=== PATIENT | female | born 1990 | race Caucasian/White ===

== ENCOUNTER 2016-05-04 10:05 | Emergency (ER) | payer MEDICAID, OTHER ==
[2016-05-04] MEDS ORDERED: ONDANSETRON 4MG/2ML VIAL (J2405) As Ordered ONE (10:57)
[2016-05-04] MEDS ORDERED: KETOROLAC 30 MG/ML VIAL (J1885) As Ordered ONE (10:57)
[2016-05-04 11:14] LABS: BASO % 0.4 % (0.0-1.0); EOS # 0.3 K/mm3 (0.0-0.50); EOS % 2.7 % (0.0-3.0); LARGE UNSTAINED CELL # 0.1 K/mm3 (0.0-0.4); LARGE UNSTAINED CELL % 0.9 % (0.0-4.0); LYMPH % 9.7 % (24.0-44.0); MEAN CORPUSCULAR HGB CONC 33.1 g/dl (32.0-36.5); MEAN CORPUSCULAR VOLUME 87.6 fl (80.0-96.0); MONO # 0.4 K/mm3 (0.0-0.8); MONO % 3.7 % (0.0-5.0); NEUTROPHILS # 8.5 K/mm3 (1.8-7.7); NEUTROPHILS % 82.6 % (36.0-66.0); PLATELET COUNT, AUTOMATED 244 k/mm3 (150-450); RED CELL DISTRIBUTION WIDTH 12.9 % (11.5-14.5); WHITE BLOOD COUNT 10.3 K/mm3 (4.0-10.0)
[2016-05-04 11:36] LABS: ALBUMIN 4.5 GM/DL (3.2-5.2); ALBUMIN/GLOBULIN RATIO 1.29 (1.00-1.93); ALKALINE PHOSPHATASE 74 U/L (45-117); ALT/SGPT 20 U/L (12-78); ANION GAP 7 MEQ/L (8-16); AST/SGOT 9 U/L (15-37); BILIRUBIN,DIRECT 0.1 MG/DL (0.0-0.2); BILIRUBIN,TOTAL 0.5 MG/DL (0.2-1.0); BLOOD UREA NITROGEN 19 MG/DL (7-18); CARBON DIOXIDE LEVEL 29 MEQ/L (21-32); CHLORIDE LEVEL 106 MEQ/L (98-107); CREATININE FOR GFR 0.91 MG/DL (0.55-1.02); GLOMERULAR FILTRATION RATE > 60.0 (>60); GLUCOSE, FASTING 93 MG/DL (70-105); POTASSIUM SERUM 3.7 MEQ/L (3.5-5.1); SODIUM LEVEL 142 MEQ/L (136-145)
[2016-05-04 11:52] LABS: CALCIUM OXALATE CRYSTALS SMALL
[2016-05-04] MEDS ORDERED: MORPHINE 4 MG/ML 1ML SYRINGE As Ordered ONE (12:03)
--- NOTE | 2016-05-04 12:40 | REP ---
Clinical: Right flank pain. Findings: Lung bases clear. Visualized heart and pericardium normal. Liver, spleen, pancreas, gallbladder, bilateral adrenal glands and kidneys are normal for noncontrast evaluation. The enteric system is without obstruction or acute inflammatory process. Mildly prominent lymph nodes in the right lower quadrant/pericecal region may reflect mesenteric adenitis. Pelvis demonstrates normal bladder and age-appropriate uterus/adnexa. No pelvic fluid/ascites. No free air. Abdominal aorta normal. Surrounding musculoskeletal structures are intact. Impression: 1. Cannot exclude mesenteric adenitis. 2. Otherwise unremarkable noncontrast CT of the abdomen and pelvis. No evidence for hydroureteronephrosis or intra renal/obstructing ureteral calculi. 3. No ascites. Signed by Pasquale Baez MD 05/04/2016 12:30 P
--- NOTE | 2016-05-04 12:57 | EDDOCDS ---
Physician Documentation [facility] Name: Lesia Jo Age: 26 yrs Sex: Female : 1990 Arrival Date: 05/04/2016 Time: 10:05 Bed I2 / M2 Private MD: Disposition: 05/04/16 12:49 Discharged to Home/Self Care. Impression: Unspecified renal colic. - Condition is Stable. - Discharge Instructions: Ureteral Colic. - Prescriptions for Ultram 50 mg Oral Tablet - take 1 tablet by ORAL route every 6 hours As needed MDD: 4 tabs; 12 tablet. - Medication Reconciliation, Local Pharmacy Hours form. - Follow up: Emergency Department; When: As needed; Reason: Worsening of conditions. Follow up: Private Physician; When: Call to arrange an appointment; Reason: Wound/Symptom Recheck, Recheck today's complaints, Continuance of care. - Problem is an ongoing problem. - Symptoms are resolved. Historical: - Allergies: no known allergies; - Home Meds: 1. Effexor XR 225mg Oral 1 cap once daily (Last dose: 05/03/2016 07:00) 2. levothyroxine 88 mcg Oral cap 1 cap once daily (Last dose: 05/04/2016 07:00) 3. Motrin 200mg Oral tab 4 tab as needed (Last dose: 05/04/2016 08:00) - PMHx: PTSD; Thyroid problem; - PSHx: chest tube after ; Right breast reconstruction; - Social history: Smoking status: Patient uses tobacco products, light tobacco smoker. No barriers to communication noted, The patient speaks fluent Turkish. - Family history: Not pertinent. - : The pt / caregiver states he / she is not on anticoagulants. Home medication list is obtained from the patient. - Exposure Risk Screening:: None identified. 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 4 in. (162.56 cm); Pain 9/10; 11:42 Pain 4/10; jc4 12:49 BP 111 / 78; Pulse 87; Resp 20; Temp 98.2(O); Pulse Ox 100% ; Pain 0/10; jml1 10:07 Body Mass Index 24.55 (64.86 kg, 162.56 cm) sar1 MDM: 10:53 NS 0.9% 1000 ml IV at bolus once ordered. cc10 10:53 Ondansetron 4 mg IVP once ordered. cc10 10:53 ketorolac 30 mg IVP once ordered. cc10 10:53 IV Saline Lock ordered. cc10 10:53 Undress patient appropriately for examination ordered. cc10 10:54 Basic Metabolic Profile Ordered. EDMS 10:54 CBC with Diff Ordered. EDMS 10:54 Lipase Ordered. EDMS 10:54 Liver Profile Ordered. EDMS 10:54 Urinalysis Ordered. EDMS 10:54 Urine Culture Ordered. EDMS 10:54 UCG by Nursing ordered. cc10 10:54 NOTHING BY MOUTH+DIET ordered. EDMS 11:07 [facility] Payment Agreement was scanned into [employer] and attached to record. jp5 11:08 Financial registration complete. jp5 11:54 Basic Metabolic Profile Reviewed. cc10 11:54 CBC with Diff Reviewed. cc10 11:54 Liver Profile Reviewed. cc10 11:54 Urinalysis Reviewed. cc10 11:54 Lipase Reviewed. cc10 11:58 morphine 4 mg IVP once ordered. cc10 11:59 CT ABD & PELVIS: No Contrast Ordered. EDMS Point of Care Testing: Urine : 11:42 hCG Reading: Negative; Control Reading: Positive; jc4 Ranges: Administered Medications: 11:04 Drug: NS 0.9% 1000 ml [sodium chloride 0.9 % intravenous solution] Route: IV; Rate: hs1 bolus; Site: right antecubital; 12:56 Follow up: IV Status: Completed infusion; IV Intake: 1000ml hs1 11:04 Drug: Ondansetron 4 mg [ondansetron HCl 2 mg/mL intravenous solution (2 mL)] Route: hs1 IVP; Site: right antecubital; 11:05 Drug: ketorolac 30 mg [ketorolac 30 mg/mL (1 mL) injection solution (1 mL)] Route: IVP; hs1 Site: right antecubital; 11:42 Follow up: Pain 4/10 Adult 4 12:06 Drug: morphine 4 mg [morphine 4 mg/mL intravenous cartridge (1 mL)] Route: IVP; Site: [facility] right antecubital; 12:06 Follow up: Response: Confirmed pt not driving. jc4 Signatures: Dispatcher [employer] Manuel Ma,RN RN Gianna Harper RN RN hs1 Rimma Kelley RN RN jc4 Oscar Marin, PAShonaC PA-C cc10 Danie Harrison jp5 The chart was reviewed and I authenticate all verbal orders and agree with the evaluation and treatment provided.Attachments: 11:07 [facility] Payment Agreement jp5 MTDD
--- NOTE | 2016-05-04 12:57 | EDDOCDS ---
Nurse's Notes [facility] Name: Lesia Jo Age: 26 yrs Sex: Female : 1990 Arrival Date: 05/04/2016 Time: 10:05 Bed I2 / M2 Private MD: Diagnosis: Unspecified renal colic Presentation: 05/04 10:11 Presenting complaint: Patient states: Thursday had pain in RLQ with N/V that resolved. po Awoke with right flank pain this am. Acute neurological deficits are not present. Mechanism of Injury: No Mechanism of Injury. Adult Sepsis Screening: The patient does not have new or worsening altered mentation. Patient's respiratory rate is less than 22. Systolic blood pressure is greater than 100. Patient has a qSOFA score of 0- Negative Sepsis Screen. Suicide/Homicide risk assessment- the patient denies having any suicidal and/or homicidal ideations and does not present with any other emotional, behavioral or mental health complaints. 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 Transition of care: patient was not received from another setting of care. 10:11 Acuity: VITA Level 3 po 10:11 Method Of Arrival: Walkin/Carried/Asstd po Triage Assessment: 10:16 General: Appears in no apparent distress, Behavior is appropriate for age, cooperative. po Pain: Location: right flank Pain currently is 9 out of 10 on a pain scale. Quality of pain is described as aching, dull, Is intermittent. HIV screening NA for this visit Offered previously. Neurological: Level of Consciousness is awake, alert, Oriented to person, place, time. GI: Reports nausea. : Denies burning with urination, urinary frequency, urgency. Musculoskeletal: Denies weakness, numbness. 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 Effexor XR 225mg Oral 1 cap once daily (Last dose: 05/03/2016 07:00) 2. levothyroxine 88 mcg Oral cap 1 cap once daily (Last dose: 05/04/2016 07:00) 3. Motrin 200mg Oral tab 4 tab as needed (Last dose: 05/04/2016 08:00) - PMHx: PTSD; Thyroid problem; - PSHx: chest tube after ; Right breast reconstruction; - Social history: Smoking status: Patient uses tobacco products, light tobacco smoker. No barriers to communication noted, The patient speaks fluent Malian. - Family history: Not pertinent. - : The pt / caregiver states he / she is not on anticoagulants. Home medication list is obtained from the patient. - Exposure Risk Screening:: None identified. Screenin:09 Screening information is obtained from the patient. Fall risk: No risks identified. jc4 Assistance ADL's: requires no assistance with activities of daily living. Abuse/DV Screen: The patient / caregiver reports he/she is: not in a situation that causes fear, pain or injury. Nutritional screening: No deficits noted. Advance Directives: Currently, there is no health care proxy. There is no active DNR order. There is no living will. There is no Power of Motor Setter. home support is adequate. Assessment: 11:08 General: Appears in no apparent distress, Behavior is cooperative, pleasant. Pain: Pain jc4 currently is 7 out of 10 on a pain scale. Neurological: Level of Consciousness is awake, alert, Oriented to person, place, time. Respiratory: Airway is patent Respiratory effort is even, unlabored, Respiratory pattern is regular, symmetrical. : Reports pain in right flank(s). Derm: Skin is pink, warm & dry. 11:44 General: Pt resting on stretcher. No distress noted at this time. Pt reports that pain jc4 is currently "4/10" at this time. Color pink, skin warm and dry. Respirations easy and full. Significant other at bedside. Call cartagena in reach. 12:54 General: Appears in no apparent distress, comfortable, Behavior is appropriate for age, hs1 cooperative. Pain: Denies pain. Cardiovascular: No deficits noted. Respiratory: Airway is patent Respiratory effort is even, unlabored, Respiratory pattern is regular, symmetrical. GI: Denies nausea. : Denies. Derm: Skin is pink, warm & dry. normal. Vital Signs: 10:07 BP 151 / 98; Pulse 88; Resp 18; Temp 98.1; Pulse Ox 100% ; Weight 64.86 kg; Height 5 sar1 ft. 4 in. (162.56 cm); Pain 9/10; 11:42 Pain 4/10; jc4 12:49 BP 111 / 78; Pulse 87; Resp 20; Temp 98.2(O); Pulse Ox 100% ; Pain 0/10; jml1 10:07 Body Mass Index 24.55 (64.86 kg, 162.56 cm) [facility] Vitals: 10:07 Log In Time: May 04, 2016 at 10:07. [facility] ED Course: 10:06 Patient visited by Padmini Stack, Aviation Consultant. sar1 10:06 Patient moved to Waiting sar1 10:08 Patient moved to Pre RCE sar1 10:13 Triage Initiated po 10:16 Arm band placed on right wrist. Patient placed in waiting room. Family accompanied po patient. 10:18 Patient visited by Manuel Lake RN. po 10:32 Patient moved to Triage 3 mlb1 10:42 Oscar Marin PA-C is PHCP. cc10 10:42 Kat Cartagena MD is Attending Physician. cc10 10:42 Patient visited by Oscar Marin PA-C. cc10 10:42 Patient visited by Oscar Marin PA-C. cc10 10:54 Rimma Kelley, ALEX is Primary Nurse. rn1 10:54 Patient moved to I2 / M2 rn1 11:01 Inserted saline lock: 20 gauge in right antecubital area The patient tolerated the jc4 procedure well. 11:04 Basic Metabolic Profile Sent. hs1 11:04 CBC with Diff Sent. hs1 11:04 Lipase Sent. hs1 11:04 Liver Profile Sent. hs1 11:07 [facility] Payment Agreement was scanned into [email or web address] and attached to record. jp5 11:08 The patient / caregiver is instructed regarding the plan of care and ED course. jc4 11:13 Patient visited by Gianna Medina RN. hs1 11:42 Urinalysis Sent. jc4 11:42 Urine Culture Sent. jc4 11:44 Patient visited by Rimma Kelley RN. jc4 12:43 CT ABD & PELVIS: No Contrast Returned. EDMS 12:45 Patient visited by Gianna Medina RN. hs1 12:49 Patient visited by Corey Jordan. jml1 12:55 Discontinued IV lock intact, bleeding controlled, pressure dressing applied, No hs1 redness/swelling at site. No procedures done that require assistance. Administered Medications: 11:04 Drug: NS 0.9% 1000 ml [sodium chloride 0.9 % intravenous solution] Route: IV; Rate: hs1 bolus; Site: right antecubital; 12:56 Follow up: IV Status: Completed infusion; IV Intake: 1000ml hs1 11:04 Drug: Ondansetron 4 mg [ondansetron HCl 2 mg/mL intravenous solution (2 mL)] Route: hs1 IVP; Site: right antecubital; 11:05 Drug: ketorolac 30 mg [ketorolac 30 mg/mL (1 mL) injection solution (1 mL)] Route: IVP; hs1 Site: right antecubital; 11:42 Follow up: Pain 4/10 Adult jc4 12:06 Drug: morphine 4 mg [morphine 4 mg/mL intravenous cartridge (1 mL)] Route: IVP; Site: jc4 right antecubital; 12:06 Follow up: Response: Confirmed pt not driving. jc4 Point of Care Testing: Urine : 11:42 hCG Reading: Negative; Control Reading: Positive; jc4 Ranges: Intake: 12:56 IV: 1000.00ml; Total: 1000.00ml. hs1 Order Results: Lab Order: Basic Metabolic Profile; SPEC'M 05/04/16 11:02 Test: GLUCOSE, FASTING; Value: 93; Range: 70-105; Units: MG/DL; Status: F Test: BLOOD UREA NITROGEN; Value: 19; Range: 7-18; Abnormal: Above high normal; Units: MG/DL; Status: F Test: CREATININE FOR GFR; Value: 0.91; Range: 0.55-1.02; Units: MG/DL; Status: F Test: GLOMERULAR FILTRATION RATE; Value: > 60.0; Range: >60; Status: F Test: SODIUM LEVEL; Value: 142; Range: 136-145; Units: MEQ/L; Status: F Test: POTASSIUM SERUM; Value: 3.7; Range: 3.5-5.1; Units: MEQ/L; Status: F Test: CHLORIDE LEVEL; Value: 106; Range: 98-107; Units: MEQ/L; Status: F Test: CARBON DIOXIDE LEVEL; Value: 29; Range: 21-32; Units: MEQ/L; Status: F Test: ANION GAP; Value: 7; Range: 8-16; Abnormal: Below low normal; Units: MEQ/L; Status: F Test: CALCIUM LEVEL; Value: 9.0; Range: 8.5-10.1; Units: MG/DL; Status: F Test Note: ; Units are mL/min/1.73 m2 Chronic Kidney Disease Staging per NKF: Stage I & II GFR >=60 Normal to Mildly Decreased Stage III GFR 30-59 Moderately Decreased Stage IV GFR 15-29 Severely Decreased Stage V GFR <15 Very Little GFR Left ESRD GFR <15 on BROACH GRINDER Lab Order: CBC with Diff; SPEC'M 05/04/16 11:02 Test: WHITE BLOOD COUNT; Value: 10.3; Range: 4.0-10.0; Abnormal: Above high normal; Units: K/mm3; Status: F Test: RED BLOOD COUNT; Value: 4.60; Range: 4.00-5.40; Units: M/mm3; Status: F Test: HEMOGLOBIN; Value: 13.3; Range: 12.0-16.0; Units: g/dl; Status: F Test: HEMATOCRIT; Value: 40.3; Range: 36.0-47.0; Units: %; Status: F Test: MEAN CORPUSCULAR VOLUME; Value: 87.6; Range: 80.0-96.0; Units: fl; Status: F Test: MEAN CORPUSCULAR HEMOGLOBIN; Value: 29.0; Range: 27.0-33.0; Units: pg; Status: F Test: MEAN CORPUSCULAR HGB CONC; Value: 33.1; Range: 32.0-36.5; Units: g/dl; Status: F Test: RED CELL DISTRIBUTION WIDTH; Value: 12.9; Range: 11.5-14.5; Units: %; Status: F Test: PLATELET COUNT, AUTOMATED; Value: 244; Range: 150-450; Units: k/mm3; Status: F Test: NEUTROPHILS %; Value: 82.6; Range: 36.0-66.0; Abnormal: Above high normal; Units: %; Status: F Test: LYMPH %; Value: 9.7; Range: 24.0-44.0; Abnormal: Below low normal; Units: %; Status: F Test: MONO %; Value: 3.7; Range: 0.0-5.0; Units: %; Status: F Test: EOS %; Value: 2.7; Range: 0.0-3.0; Units: %; Status: F Test: BASO %; Value: 0.4; Range: 0.0-1.0; Units: %; Status: F Test: LARGE UNSTAINED CELL %; Value: 0.9; Range: 0.0-4.0; Units: %; Status: F Test: NEUTROPHILS #; Value: 8.5; Range: 1.8-7.7; Abnormal: Above high normal; Units: K/mm3; Status: F Test: LYMPH #; Value: 1.0; Range: 1.5-6.5; Abnormal: Below low normal; Units: K/mm3; Status: F Test: MONO #; Value: 0.4; Range: 0.0-0.8; Units: K/mm3; Status: F Test: EOS #; Value: 0.3; Range: 0.0-0.50; Units: K/mm3; Status: F Test: BASO #; Value: 0.0; Range: 0.0-0.2; Units: K/mm3; Status: F Test: LARGE UNSTAINED CELL #; Value: 0.1; Range: 0.0-0.4; Units: K/mm3; Status: F Lab Order: Lipase; SPEC'M 05/04/16 11:02 Test: LIPASE; Value: 107; Range: 73-393; Units: U/L; Status: F Lab Order: Liver Profile; SPEC'M 05/04/16 11:02 Test: AST/SGOT; Value: 9; Range: 15-37; Abnormal: Below low normal; Units: U/L; Status: F Test: ALT/SGPT; Value: 20; Range: 12-78; Units: U/L; Status: F Test: ALKALINE PHOSPHATASE; Value: 74; Range: 45-117; Units: U/L; Status: F Test: BILIRUBIN,TOTAL; Value: 0.5; Range: 0.2-1.0; Units: MG/DL; Status: F Test: BILIRUBIN,DIRECT; Value: 0.1; Range: 0.0-0.2; Units: MG/DL; Status: F Test: TOTAL PROTEIN; Value: 8.0; Range: 6.4-8.2; Units: GM/DL; Status: F Test: ALBUMIN; Value: 4.5; Range: 3.2-5.2; Units: GM/DL; Status: F Test: ALBUMIN/GLOBULIN RATIO; Value: 1.29; Range: 1.00-1.93; Status: F Lab Order: Urinalysis; SPEC'M 05/04/16 11:37 Test: APPEARANCE, URINE; Value: HAZY; Range: CLEAR; Status: F Test: COLOR, URINE; Value: YELLOW; Range: YELLOW; Status: F Test: PH,URINE; Value: 6.0; Range: 5.0-9.0; Units: UNITS; Status: F Test: SPECIFIC GRAVITY URINE AUTO; Value: 1.017; Range: 1.002-1.035; Status: F Test: PROTEIN, URINE AUTO; Value: 2+; Range: NEGATIVE; Abnormal: Above high normal; Units: mg/dL; Status: F Test: GLUCOSE, URINE (UA) AUTO; Value: NEGATIVE; Range: NEGATIVE; Units: mg/dL; Status: F Test: KETONE, URINE AUTO; Value: NEGATIVE; Range: NEGATIVE; Units: mg/dL; Status: F Test: UROBILINOGEN, URINE AUTO; Value: 0.2; Range: 0.0-2.0; Units: mg/dL; Status: F Test: BILIRUBIN, URINE AUTO; Value: NEGATIVE; Range: NEGATIVE; Status: F Test: NITRITE, URINE AUTO; Value: NEGATIVE; Range: NEGATIVE; Status: F Test: LEUKOCYTE ESTERASE, URINE AUTO; Value: TRACE; Range: NEGATIVE; Abnormal: Above high normal; Status: F Test: BLOOD, URINE BLOOD; Value: 3+; Range: NEGATIVE; Abnormal: Above high normal; Status: F Test: WBC, URINE AUTO; Value: 6; Range: 0-3; Abnormal: Above high normal; Units: /HPF; Status: F Test: RBC, URINE AUTO; Value: TNTC; Range: 0-3; Abnormal: Above high normal; Units: /HPF; Status: F Test: BACTERIA, URINE AUTO; Value: NEGATIVE; Range: NEGATIVE; Status: F Test: SQUAMOUS EPITHELIAL CELL UR AU; Value: 1; Range: 0-6; Units: /HPF; Status: F Test: MUCUS, URINE; Value: MODERATE; Range: NEGATIVE; Status: F Test: HYALINE CAST, URINE AUTO; Value: 0; Range: 0-1; Units: /LPF; Status: F Test: CALCIUM OXALATE CRYSTALS; Value: SMALL; Range: NONE; Status: F Radiology Order: CT ABD & PELVIS: No Contrast Test: CT ABD & PELVIS: No Contrast REASON FOR EXAMINATION: Renal colic; Clinical: Right flank pain.; ; Findings:; Lung bases clear. Visualized heart and pericardium normal.; ; Liver, spleen, pancreas, gallbladder, bilateral adrenal glands and kidneys are; normal for noncontrast evaluation. The enteric system is without obstruction or; acute inflammatory process. Mildly prominent lymph nodes in the right lower; quadrant/pericecal region may reflect mesenteric adenitis. Pelvis demonstrates; normal bladder and age-appropriate uterus/adnexa. No pelvic fluid/ascites. No; free air. Abdominal aorta normal. Surrounding musculoskeletal structures are; intact.; ; Impression:; 1. Cannot exclude mesenteric adenitis.; 2. Otherwise unremarkable noncontrast CT of the abdomen and pelvis. No evidence; for hydroureteronephrosis or intra renal/obstructing ureteral calculi.; 3. No ascites.; ; ; Signed by; Pasquale Baez MD 05/04/2016 12:30 P; Outcome: 12:49 Discharge ordered by Provider. cc10 12:55 Discharge Assessment: Patient awake, alert and oriented x 3. No cognitive and/or hs1 functional deficits noted. Patient verbalized understanding of disposition instructions. patient administered narcotics - yes. Pt provided with safe discharge. The following High Risk Discharge criteria are identified: None. Discharged to home ambulatory. Condition: stable. Discharge instructions given to patient, Instructed on discharge instructions, follow up and referral plans. medication usage, Demonstrated understanding of instructions, medications, Pt was receptive of discharge instructions/ teaching. Prescriptions given X 1. CT Study completed. Property sent home with patient. 12:56 Patient left the ED. hs1 Signatures: Dispatcher [employer] EDMS Manuel Lake,RN RN Mykel De Oliveira RN RN mlb1 Gianna Medina RN RN hs1 Rimma Kelley RN RN jc4 Corey Jordan jml1 Oscar Marin, PA-C PA-C cc10 Padmini Stack, Aviation Consultant Unit sar1 Bradly Choi rn1 Danie Harrison jp5 ADOLPH
--- NOTE | 2016-05-06 13:57 | EDDOCDS ---
Physician Documentation [facility] Name: Lesia Jo Age: 26 yrs Sex: Female : 1990 Arrival Date: 05/04/2016 Time: 10:05 Bed I2 / M2 Private MD: Disposition: 05/04/16 12:49 Discharged to Home/Self Care. Impression: Unspecified renal colic. - Condition is Stable. - Discharge Instructions: Ureteral Colic. - Prescriptions for Ultram 50 mg Oral Tablet - take 1 tablet by ORAL route every 6 hours As needed MDD: 4 tabs; 12 tablet. - Medication Reconciliation, Local Pharmacy Hours form. - Follow up: Emergency Department; When: As needed; Reason: Worsening of conditions. Follow up: Private Physician; When: Call to arrange an appointment; Reason: Wound/Symptom Recheck, Recheck today's complaints, Continuance of care. - Problem is an ongoing problem. - Symptoms are resolved. Historical: - Allergies: no known allergies; - Home Meds: 1. Effexor XR 225mg Oral 1 cap once daily (Last dose: 05/03/2016 07:00) 2. levothyroxine 88 mcg Oral cap 1 cap once daily (Last dose: 05/04/2016 07:00) 3. Motrin 200mg Oral tab 4 tab as needed (Last dose: 05/04/2016 08:00) - PMHx: PTSD; Thyroid problem; - PSHx: chest tube after ; Right breast reconstruction; - Social history: Smoking status: Patient uses tobacco products, light tobacco smoker. No barriers to communication noted, The patient speaks fluent Kiswahili. - Family history: Not pertinent. - : The pt / caregiver states he / she is not on anticoagulants. Home medication list is obtained from the patient. - Exposure Risk Screening:: None identified. 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 4 in. (162.56 cm); Pain 9/10; 11:42 Pain 4/10; jc4 12:49 BP 111 / 78; Pulse 87; Resp 20; Temp 98.2(O); Pulse Ox 100% ; Pain 0/10; jml1 10:07 Body Mass Index 24.55 (64.86 kg, 162.56 cm) sar1 MDM: 10:53 NS 0.9% 1000 ml IV at bolus once ordered. cc10 10:53 Ondansetron 4 mg IVP once ordered. cc10 10:53 ketorolac 30 mg IVP once ordered. cc10 10:53 IV Saline Lock ordered. cc10 10:53 Undress patient appropriately for examination ordered. cc10 10:54 Basic Metabolic Profile Ordered. EDMS 10:54 CBC with Diff Ordered. EDMS 10:54 Lipase Ordered. EDMS 10:54 Liver Profile Ordered. EDMS 10:54 Urinalysis Ordered. EDMS 10:54 Urine Culture Ordered. EDMS 10:54 UCG by Nursing ordered. cc10 10:54 NOTHING BY MOUTH+DIET ordered. EDMS 11:07 [facility] Payment Agreement was scanned into [email or web address] and attached to record. jp5 11:08 Financial registration complete. jp5 11:54 Basic Metabolic Profile Reviewed. cc10 11:54 CBC with Diff Reviewed. cc10 11:54 Liver Profile Reviewed. cc10 11:54 Urinalysis Reviewed. cc10 11:54 Lipase Reviewed. cc10 11:58 morphine 4 mg IVP once ordered. cc10 11:59 CT ABD & PELVIS: No Contrast Ordered. EDMS 17:23 T-Sheet-- Draft Copy was scanned into [email or web address] and attached to record. klr Point of Care Testing: Urine : 11:42 hCG Reading: Negative; Control Reading: Positive; jc4 Ranges: Administered Medications: 11:04 Drug: NS 0.9% 1000 ml [sodium chloride 0.9 % intravenous solution] Route: IV; Rate: hs1 bolus; Site: right antecubital; 12:56 Follow up: IV Status: Completed infusion; IV Intake: 1000ml hs1 11:04 Drug: Ondansetron 4 mg [ondansetron HCl 2 mg/mL intravenous solution (2 mL)] Route: hs1 IVP; Site: right antecubital; 11:05 Drug: ketorolac 30 mg [ketorolac 30 mg/mL (1 mL) injection solution (1 mL)] Route: IVP; hs1 Site: right antecubital; 11:42 Follow up: Pain 4/10 Adult jc4 12:06 Drug: morphine 4 mg [morphine 4 mg/mL intravenous cartridge (1 mL)] Route: IVP; Site: [facility] right antecubital; 12:06 Follow up: Response: Confirmed pt not driving. jc4 Signatures: Dispatcher [employer] EDManuel Marinelli,RN RN po Gianna Medina RN RN hs1 Rimma Kelley RN RN jc4 Oscar Marin PA-C PASravan cc10 Danie Harrison jp5 Nell Carrion The chart was reviewed and I authenticate all verbal orders and agree with the evaluation and treatment provided.Attachments: 11:07 [facility] Payment Agreement jp5 17:23 T-Sheet-- Draft Copy klr Chart Complete MTDD
--- NOTE | 2016-05-06 13:57 | EDDOCDS ---
Physician Documentation [facility] Name: Lesia Jo Age: 26 yrs Sex: Female : 1990 Arrival Date: 05/04/2016 Time: 10:05 Bed I2 / M2 Private MD: Disposition: 05/04/16 12:49 Discharged to Home/Self Care. Impression: Unspecified renal colic. - Condition is Stable. - Discharge Instructions: Ureteral Colic. - Prescriptions for Ultram 50 mg Oral Tablet - take 1 tablet by ORAL route every 6 hours As needed MDD: 4 tabs; 12 tablet. - Medication Reconciliation, Local Pharmacy Hours form. - Follow up: Emergency Department; When: As needed; Reason: Worsening of conditions. Follow up: Private Physician; When: Call to arrange an appointment; Reason: Wound/Symptom Recheck, Recheck today's complaints, Continuance of care. - Problem is an ongoing problem. - Symptoms are resolved. Historical: - Allergies: no known allergies; - Home Meds: 1. Effexor XR 225mg Oral 1 cap once daily (Last dose: 05/03/2016 07:00) 2. levothyroxine 88 mcg Oral cap 1 cap once daily (Last dose: 05/04/2016 07:00) 3. Motrin 200mg Oral tab 4 tab as needed (Last dose: 05/04/2016 08:00) - PMHx: PTSD; Thyroid problem; - PSHx: chest tube after ; Right breast reconstruction; - Social history: Smoking status: Patient uses tobacco products, light tobacco smoker. No barriers to communication noted, The patient speaks fluent Latvian. - Family history: Not pertinent. - : The pt / caregiver states he / she is not on anticoagulants. Home medication list is obtained from the patient. - Exposure Risk Screening:: None identified. 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 4 in. (162.56 cm); Pain 9/10; 11:42 Pain 4/10; jc4 12:49 BP 111 / 78; Pulse 87; Resp 20; Temp 98.2(O); Pulse Ox 100% ; Pain 0/10; jml1 10:07 Body Mass Index 24.55 (64.86 kg, 162.56 cm) sar1 MDM: 10:53 NS 0.9% 1000 ml IV at bolus once ordered. cc10 10:53 Ondansetron 4 mg IVP once ordered. cc10 10:53 ketorolac 30 mg IVP once ordered. cc10 10:53 IV Saline Lock ordered. cc10 10:53 Undress patient appropriately for examination ordered. cc10 10:54 Basic Metabolic Profile Ordered. EDMS 10:54 CBC with Diff Ordered. EDMS 10:54 Lipase Ordered. EDMS 10:54 Liver Profile Ordered. EDMS 10:54 Urinalysis Ordered. EDMS 10:54 Urine Culture Ordered. EDMS 10:54 UCG by Nursing ordered. cc10 10:54 NOTHING BY MOUTH+DIET ordered. EDMS 11:07 [facility] Payment Agreement was scanned into [employer] and attached to record. jp5 11:08 Financial registration complete. jp5 11:54 Basic Metabolic Profile Reviewed. cc10 11:54 CBC with Diff Reviewed. cc10 11:54 Liver Profile Reviewed. cc10 11:54 Urinalysis Reviewed. cc10 11:54 Lipase Reviewed. cc10 11:58 morphine 4 mg IVP once ordered. cc10 11:59 CT ABD & PELVIS: No Contrast Ordered. EDMS 17:23 T-Sheet-- Draft Copy was scanned into [employer] and attached to record. klr Point of Care Testing: Urine : 11:42 hCG Reading: Negative; Control Reading: Positive; jc4 Ranges: Administered Medications: 11:04 Drug: NS 0.9% 1000 ml [sodium chloride 0.9 % intravenous solution] Route: IV; Rate: hs1 bolus; Site: right antecubital; 12:56 Follow up: IV Status: Completed infusion; IV Intake: 1000ml hs1 11:04 Drug: Ondansetron 4 mg [ondansetron HCl 2 mg/mL intravenous solution (2 mL)] Route: hs1 IVP; Site: right antecubital; 11:05 Drug: ketorolac 30 mg [ketorolac 30 mg/mL (1 mL) injection solution (1 mL)] Route: IVP; hs1 Site: right antecubital; 11:42 Follow up: Pain 4/10 Adult jc4 12:06 Drug: morphine 4 mg [morphine 4 mg/mL intravenous cartridge (1 mL)] Route: IVP; Site: [facility] right antecubital; 12:06 Follow up: Response: Confirmed pt not driving. jc4 Signatures: Dispatcher [employer] EDManuel Marinelli,RN RN po Gianna Medina RN RN hs1 Rimma Kelley RN RN jc4 Oscar Marin PA-C PASravan cc10 Danie Harrison jp5 Nell Carrion The chart was reviewed and I authenticate all verbal orders and agree with the evaluation and treatment provided.Attachments: 11:07 [facility] Payment Agreement jp5 17:23 T-Sheet-- Draft Copy klr Chart Complete MTDD
--- NOTE | 2016-05-06 13:58 | EDDOCDS ---
Nurse's Notes [facility] Name: Lesia Jo Age: 26 yrs Sex: Female : 1990 Arrival Date: 05/04/2016 Time: 10:05 Bed I2 / M2 Private MD: Diagnosis: Unspecified renal colic Presentation: 05/04 10:11 Presenting complaint: Patient states: Thursday had pain in RLQ with N/V that resolved. po Awoke with right flank pain this am. Acute neurological deficits are not present. Mechanism of Injury: No Mechanism of Injury. Adult Sepsis Screening: The patient does not have new or worsening altered mentation. Patient's respiratory rate is less than 22. Systolic blood pressure is greater than 100. Patient has a qSOFA score of 0- Negative Sepsis Screen. Suicide/Homicide risk assessment- the patient denies having any suicidal and/or homicidal ideations and does not present with any other emotional, behavioral or mental health complaints. Status: Patient is not a library services dean or dependent. Transition of care: patient was not received from another setting of care. 10:11 Acuity: VITA Level 3 po 10:11 Method Of Arrival: Walkin/Carried/Asstd po Triage Assessment: 10:16 General: Appears in no apparent distress, Behavior is appropriate for age, cooperative. po Pain: Location: right flank Pain currently is 9 out of 10 on a pain scale. Quality of pain is described as aching, dull, Is intermittent. HIV screening NA for this visit Offered previously. Neurological: Level of Consciousness is awake, alert, Oriented to person, place, time. GI: Reports nausea. : Denies burning with urination, urinary frequency, urgency. Musculoskeletal: Denies weakness, numbness. 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 Effexor XR 225mg Oral 1 cap once daily (Last dose: 05/03/2016 07:00) 2. levothyroxine 88 mcg Oral cap 1 cap once daily (Last dose: 05/04/2016 07:00) 3. Motrin 200mg Oral tab 4 tab as needed (Last dose: 05/04/2016 08:00) - PMHx: PTSD; Thyroid problem; - PSHx: chest tube after ; Right breast reconstruction; - Social history: Smoking status: Patient uses tobacco products, light tobacco smoker. No barriers to communication noted, The patient speaks fluent Cymro. - Family history: Not pertinent. - : The pt / caregiver states he / she is not on anticoagulants. Home medication list is obtained from the patient. - Exposure Risk Screening:: None identified. Screenin:09 Screening information is obtained from the patient. Fall risk: No risks identified. jc4 Assistance ADL's: requires no assistance with activities of daily living. Abuse/DV Screen: The patient / caregiver reports he/she is: not in a situation that causes fear, pain or injury. Nutritional screening: No deficits noted. Advance Directives: Currently, there is no health care proxy. There is no active DNR order. There is no living will. There is no Power of Roofing Machine Tender. home support is adequate. Assessment: 11:08 General: Appears in no apparent distress, Behavior is cooperative, pleasant. Pain: Pain jc4 currently is 7 out of 10 on a pain scale. Neurological: Level of Consciousness is awake, alert, Oriented to person, place, time. Respiratory: Airway is patent Respiratory effort is even, unlabored, Respiratory pattern is regular, symmetrical. : Reports pain in right flank(s). Derm: Skin is pink, warm & dry. 11:44 General: Pt resting on stretcher. No distress noted at this time. Pt reports that pain jc4 is currently "4/10" at this time. Color pink, skin warm and dry. Respirations easy and full. Significant other at bedside. Call cartagena in reach. 12:54 General: Appears in no apparent distress, comfortable, Behavior is appropriate for age, hs1 cooperative. Pain: Denies pain. Cardiovascular: No deficits noted. Respiratory: Airway is patent Respiratory effort is even, unlabored, Respiratory pattern is regular, symmetrical. GI: Denies nausea. : Denies. Derm: Skin is pink, warm & dry. normal. Vital Signs: 10:07 BP 151 / 98; Pulse 88; Resp 18; Temp 98.1; Pulse Ox 100% ; Weight 64.86 kg; Height 5 sar1 ft. 4 in. (162.56 cm); Pain 9/10; 11:42 Pain 4/10; jc4 12:49 BP 111 / 78; Pulse 87; Resp 20; Temp 98.2(O); Pulse Ox 100% ; Pain 0/10; jml1 10:07 Body Mass Index 24.55 (64.86 kg, 162.56 cm) [facility] Vitals: 10:07 Log In Time: May 04, 2016 at 10:07. [facility] ED Course: 10:06 Patient visited by Padmini Stack, [employer]. sar1 10:06 Patient moved to Waiting sar1 10:08 Patient moved to Pre RCE sar1 10:13 Triage Initiated po 10:16 Arm band placed on right wrist. Patient placed in waiting room. Family accompanied po patient. 10:18 Patient visited by Manuel Lake RN. po 10:32 Patient moved to Triage 3 mlb1 10:42 Oscar Marin PA-C is PHCP. cc10 10:42 Kat Cartagena MD is Attending Physician. cc10 10:42 Patient visited by Oscar Marin PA-C. cc10 10:42 Patient visited by Oscar Marin PA-C. cc10 10:54 Rimma Kelley, ALEX is Primary Nurse. rn1 10:54 Patient moved to I2 / M2 rn1 11:01 Inserted saline lock: 20 gauge in right antecubital area The patient tolerated the jc4 procedure well. 11:04 Basic Metabolic Profile Sent. hs1 11:04 CBC with Diff Sent. hs1 11:04 Lipase Sent. hs1 11:04 Liver Profile Sent. hs1 11:07 [facility] Payment Agreement was scanned into [employer] and attached to record. jp5 11:08 The patient / caregiver is instructed regarding the plan of care and ED course. jc4 11:13 Patient visited by Gianna Medina RN. hs1 11:42 Urinalysis Sent. jc4 11:42 Urine Culture Sent. jc4 11:44 Patient visited by Rimma Kelley RN. jc4 12:43 CT ABD & PELVIS: No Contrast Returned. EDMS 12:45 Patient visited by Gianna Medina RN. hs1 12:49 Patient visited by Corey Jordan. jml1 12:55 Discontinued IV lock intact, bleeding controlled, pressure dressing applied, No hs1 redness/swelling at site. No procedures done that require assistance. 17:23 T-Sheet-- Draft Copy was scanned into [employer] and attached to record. klr Administered Medications: 11:04 Drug: NS 0.9% 1000 ml [sodium chloride 0.9 % intravenous solution] Route: IV; Rate: hs1 bolus; Site: right antecubital; 12:56 Follow up: IV Status: Completed infusion; IV Intake: 1000ml hs1 11:04 Drug: Ondansetron 4 mg [ondansetron HCl 2 mg/mL intravenous solution (2 mL)] Route: hs1 IVP; Site: right antecubital; 11:05 Drug: ketorolac 30 mg [ketorolac 30 mg/mL (1 mL) injection solution (1 mL)] Route: IVP; hs1 Site: right antecubital; 11:42 Follow up: Pain 4/10 Adult jc4 12:06 Drug: morphine 4 mg [morphine 4 mg/mL intravenous cartridge (1 mL)] Route: IVP; Site: [facility] right antecubital; 12:06 Follow up: Response: Confirmed pt not driving. jc4 Point of Care Testing: Urine : 11:42 hCG Reading: Negative; Control Reading: Positive; jc4 Ranges: Intake: 12:56 IV: 1000.00ml; Total: 1000.00ml. hs1 Order Results: Lab Order: Basic Metabolic Profile; SPEC'M 05/04/16 11:02 Test: GLUCOSE, FASTING; Value: 93; Range: 70-105; Units: MG/DL; Status: F Test: BLOOD UREA NITROGEN; Value: 19; Range: 7-18; Abnormal: Above high normal; Units: MG/DL; Status: F Test: CREATININE FOR GFR; Value: 0.91; Range: 0.55-1.02; Units: MG/DL; Status: F Test: GLOMERULAR FILTRATION RATE; Value: > 60.0; Range: >60; Status: F Test: SODIUM LEVEL; Value: 142; Range: 136-145; Units: MEQ/L; Status: F Test: POTASSIUM SERUM; Value: 3.7; Range: 3.5-5.1; Units: MEQ/L; Status: F Test: CHLORIDE LEVEL; Value: 106; Range: 98-107; Units: MEQ/L; Status: F Test: CARBON DIOXIDE LEVEL; Value: 29; Range: 21-32; Units: MEQ/L; Status: F Test: ANION GAP; Value: 7; Range: 8-16; Abnormal: Below low normal; Units: MEQ/L; Status: F Test: CALCIUM LEVEL; Value: 9.0; Range: 8.5-10.1; Units: MG/DL; Status: F Test Note: ; Units are mL/min/1.73 m2 Chronic Kidney Disease Staging per NKF: Stage I & II GFR >=60 Normal to Mildly Decreased Stage III GFR 30-59 Moderately Decreased Stage IV GFR 15-29 Severely Decreased Stage V GFR <15 Very Little GFR Left ESRD GFR <15 on SENIOR MILITARY ANALYST Lab Order: CBC with Diff; SPEC'M 05/04/16 11:02 Test: WHITE BLOOD COUNT; Value: 10.3; Range: 4.0-10.0; Abnormal: Above high normal; Units: K/mm3; Status: F Test: RED BLOOD COUNT; Value: 4.60; Range: 4.00-5.40; Units: M/mm3; Status: F Test: HEMOGLOBIN; Value: 13.3; Range: 12.0-16.0; Units: g/dl; Status: F Test: HEMATOCRIT; Value: 40.3; Range: 36.0-47.0; Units: %; Status: F Test: MEAN CORPUSCULAR VOLUME; Value: 87.6; Range: 80.0-96.0; Units: fl; Status: F Test: MEAN CORPUSCULAR HEMOGLOBIN; Value: 29.0; Range: 27.0-33.0; Units: pg; Status: F Test: MEAN CORPUSCULAR HGB CONC; Value: 33.1; Range: 32.0-36.5; Units: g/dl; Status: F Test: RED CELL DISTRIBUTION WIDTH; Value: 12.9; Range: 11.5-14.5; Units: %; Status: F Test: PLATELET COUNT, AUTOMATED; Value: 244; Range: 150-450; Units: k/mm3; Status: F Test: NEUTROPHILS %; Value: 82.6; Range: 36.0-66.0; Abnormal: Above high normal; Units: %; Status: F Test: LYMPH %; Value: 9.7; Range: 24.0-44.0; Abnormal: Below low normal; Units: %; Status: F Test: MONO %; Value: 3.7; Range: 0.0-5.0; Units: %; Status: F Test: EOS %; Value: 2.7; Range: 0.0-3.0; Units: %; Status: F Test: BASO %; Value: 0.4; Range: 0.0-1.0; Units: %; Status: F Test: LARGE UNSTAINED CELL %; Value: 0.9; Range: 0.0-4.0; Units: %; Status: F Test: NEUTROPHILS #; Value: 8.5; Range: 1.8-7.7; Abnormal: Above high normal; Units: K/mm3; Status: F Test: LYMPH #; Value: 1.0; Range: 1.5-6.5; Abnormal: Below low normal; Units: K/mm3; Status: F Test: MONO #; Value: 0.4; Range: 0.0-0.8; Units: K/mm3; Status: F Test: EOS #; Value: 0.3; Range: 0.0-0.50; Units: K/mm3; Status: F Test: BASO #; Value: 0.0; Range: 0.0-0.2; Units: K/mm3; Status: F Test: LARGE UNSTAINED CELL #; Value: 0.1; Range: 0.0-0.4; Units: K/mm3; Status: F Lab Order: Lipase; SPEC'M 05/04/16 11:02 Test: LIPASE; Value: 107; Range: 73-393; Units: U/L; Status: F Lab Order: Liver Profile; SPEC'M 05/04/16 11:02 Test: AST/SGOT; Value: 9; Range: 15-37; Abnormal: Below low normal; Units: U/L; Status: F Test: ALT/SGPT; Value: 20; Range: 12-78; Units: U/L; Status: F Test: ALKALINE PHOSPHATASE; Value: 74; Range: 45-117; Units: U/L; Status: F Test: BILIRUBIN,TOTAL; Value: 0.5; Range: 0.2-1.0; Units: MG/DL; Status: F Test: BILIRUBIN,DIRECT; Value: 0.1; Range: 0.0-0.2; Units: MG/DL; Status: F Test: TOTAL PROTEIN; Value: 8.0; Range: 6.4-8.2; Units: GM/DL; Status: F Test: ALBUMIN; Value: 4.5; Range: 3.2-5.2; Units: GM/DL; Status: F Test: ALBUMIN/GLOBULIN RATIO; Value: 1.29; Range: 1.00-1.93; Status: F Lab Order: Urinalysis; SPEC'M 05/04/16 11:37 Test: APPEARANCE, URINE; Value: HAZY; Range: CLEAR; Status: F Test: COLOR, URINE; Value: YELLOW; Range: YELLOW; Status: F Test: PH,URINE; Value: 6.0; Range: 5.0-9.0; Units: UNITS; Status: F Test: SPECIFIC GRAVITY URINE AUTO; Value: 1.017; Range: 1.002-1.035; Status: F Test: PROTEIN, URINE AUTO; Value: 2+; Range: NEGATIVE; Abnormal: Above high normal; Units: mg/dL; Status: F Test: GLUCOSE, URINE (UA) AUTO; Value: NEGATIVE; Range: NEGATIVE; Units: mg/dL; Status: F Test: KETONE, URINE AUTO; Value: NEGATIVE; Range: NEGATIVE; Units: mg/dL; Status: F Test: UROBILINOGEN, URINE AUTO; Value: 0.2; Range: 0.0-2.0; Units: mg/dL; Status: F Test: BILIRUBIN, URINE AUTO; Value: NEGATIVE; Range: NEGATIVE; Status: F Test: NITRITE, URINE AUTO; Value: NEGATIVE; Range: NEGATIVE; Status: F Test: LEUKOCYTE ESTERASE, URINE AUTO; Value: TRACE; Range: NEGATIVE; Abnormal: Above high normal; Status: F Test: BLOOD, URINE BLOOD; Value: 3+; Range: NEGATIVE; Abnormal: Above high normal; Status: F Test: WBC, URINE AUTO; Value: 6; Range: 0-3; Abnormal: Above high normal; Units: /HPF; Status: F Test: RBC, URINE AUTO; Value: TNTC; Range: 0-3; Abnormal: Above high normal; Units: /HPF; Status: F Test: BACTERIA, URINE AUTO; Value: NEGATIVE; Range: NEGATIVE; Status: F Test: SQUAMOUS EPITHELIAL CELL UR AU; Value: 1; Range: 0-6; Units: /HPF; Status: F Test: MUCUS, URINE; Value: MODERATE; Range: NEGATIVE; Status: F Test: HYALINE CAST, URINE AUTO; Value: 0; Range: 0-1; Units: /LPF; Status: F Test: CALCIUM OXALATE CRYSTALS; Value: SMALL; Range: NONE; Status: F Lab Order: Urine Culture; SPEC'M 05/04/16 11:37 Test: URINE CULTURE; Value: URINE CULTURE RESULT NO GROWTH; Status: F Radiology Order: CT ABD & PELVIS: No Contrast Test: CT ABD & PELVIS: No Contrast REASON FOR EXAMINATION: Renal colic; Clinical: Right flank pain.; ; Findings:; Lung bases clear. Visualized heart and pericardium normal.; ; Liver, spleen, pancreas, gallbladder, bilateral adrenal glands and kidneys are; normal for noncontrast evaluation. The enteric system is without obstruction or; acute inflammatory process. Mildly prominent lymph nodes in the right lower; quadrant/pericecal region may reflect mesenteric adenitis. Pelvis demonstrates; normal bladder and age-appropriate uterus/adnexa. No pelvic fluid/ascites. No; free air. Abdominal aorta normal. Surrounding musculoskeletal structures are; intact.; ; Impression:; 1. Cannot exclude mesenteric adenitis.; 2. Otherwise unremarkable noncontrast CT of the abdomen and pelvis. No evidence; for hydroureteronephrosis or intra renal/obstructing ureteral calculi.; 3. No ascites.; ; ; Signed by; Pasquale Baez MD 05/04/2016 12:30 P; Outcome: 12:49 Discharge ordered by Provider. cc10 12:55 Discharge Assessment: Patient awake, alert and oriented x 3. No cognitive and/or hs1 functional deficits noted. Patient verbalized understanding of disposition instructions. patient administered narcotics - yes. Pt provided with safe discharge. The following High Risk Discharge criteria are identified: None. Discharged to home ambulatory. Condition: stable. Discharge instructions given to patient, Instructed on discharge instructions, follow up and referral plans. medication usage, Demonstrated understanding of instructions, medications, Pt was receptive of discharge instructions/ teaching. Prescriptions given X 1. CT Study completed. Property sent home with patient. 12:56 Patient left the ED. hs1 Signatures: [facility] Manuel LakeRN RN Mykel De Oliveira RN RN mlb1 Gianna Medina RN RN hs1 Rimma Kelley, RN RN jc4 Corey Jordan jml1 Oscar Marin PA-C PASravan cc10 Padmini Stack, [facility] Unit sar1 Bradly Choi rn1 Danie Harrison jp5 Nell Carrion Chart Complete MTDD
== END 2016-05-04 12:56 | disposition home or self-care (01) ==
LOC: M ED 10:05
DX: N21.1 Calculus in urethra (principal); F43.10 Post-traumatic stress disorder, unspecified; E07.9 Disorder of thyroid, unspecified; Z72.0 Tobacco use; Z79.899 Other long term (current) drug therapy

== ENCOUNTER → 2016-09-22 | Outpatient (REF) | payer MEDICAID, OTHER | LOC: M SFHCLERA 17:21 | PROVIDERS: ATTEND Family Medicine | DX: Z12.4 Encounter for screening for malignant neoplasm of cervix (principal) ==

== ENCOUNTER → 2016-12-03 | Outpatient (REF) | payer MEDICAID, OTHER | LOC: M SFHCLERA 11:09 | PROVIDERS: ATTEND Nurse Practitioner Family | DX: R30.0 Dysuria (principal) ==

== ENCOUNTER → 2017-03-25 | Outpatient (REF) | payer MEDICAID, OTHER | LOC: M SFHCLERA 10:47 | PROVIDERS: ATTEND Nurse Practitioner Family | DX: N30.00 Acute cystitis without hematuria (principal) ==

== ENCOUNTER → 2017-08-31 | Outpatient (REF) | payer MEDICAID ==
[2017-09-01 12:40] LABS: THYROID STIMULATING HORMONE 0.352 uIU/ML (0.358-3.740)
== END ==
LOC: M SFHCLERA 14:58
DX: E03.9 Hypothyroidism, unspecified (principal)
CPT/HCPCS: 84443

== ENCOUNTER → 2017-11-18 | Outpatient (REF) | payer MEDICAID | LOC: M SFHCLERA 15:35 | DX: E03.9 Hypothyroidism, unspecified (principal) | CPT/HCPCS: 84443 ==

== ENCOUNTER → 2017-11-24 | Outpatient (REF) | payer OTHER, MEDICAID ==
[2017-11-25 12:14] LABS: HIV 1&2 SCREEN CENTAUR NEGATIVE (NEGATIVE)
[2017-11-25 15:26] LABS: CHLAMYDIA DNA AMPLIFICATION NEGATIVE (NEGATIVE); GC DNA AMPLIFICATION NEGATIVE (NEGATIVE)
[2017-11-28 14:10] LABS: HPV HYBRID CAPTURE II Positive (Negative)
== END ==
LOC: M SFHCLERA 15:04
DX: Z01.419 Encounter for gynecological examination (general) (routine) without abnormal findings (principal); Z11.3 Encounter for screening for infections with a predominantly sexual mode of transmission; Z11.51 Encounter for screening for human papillomavirus (HPV)
CPT/HCPCS: 86780

== ENCOUNTER → 2018-11-22 | Outpatient (REF) | payer OTHER | LOC: M SFHCLERA 17:01 | PROVIDERS: ATTEND Family Medicine | DX: E03.9 Hypothyroidism, unspecified (principal) ==

== ENCOUNTER → 2018-12-16 | Outpatient (REF) | payer OTHER | LOC: M LAB REF 18:17 | PROVIDERS: ATTEND Advanced Practice Midwife | DX: Z12.4 Encounter for screening for malignant neoplasm of cervix (principal) ==

== ENCOUNTER → 2020-01-31 | Outpatient (REF) | payer OTHER | LOC: M SFHCWAGY 17:13 | PROVIDERS: ATTEND Nurse Practitioner Women's Health | DX: Z12.4 Encounter for screening for malignant neoplasm of cervix (principal); N76.0 Acute vaginitis ==

== ENCOUNTER → 2020-02-07 | Outpatient (REF) | payer OTHER | LOC: M LAB REF 12:10 | PROVIDERS: ATTEND Physician Assistant | DX: J02.9 Acute pharyngitis, unspecified (principal) ==

== ENCOUNTER → 2020-02-07 | Outpatient (REF) | payer OTHER ==
[2020-02-07 13:53] LABS: FREE T4 1.08 NG/DL (0.76-1.46); THYROID STIMULATING HORMONE 1.63 uIU/ML (0.358-3.740)
== END ==
LOC: M SFHCADAM 09:23
PROVIDERS: ATTEND Family Medicine
DX: Z00.00 Encounter for general adult medical examination without abnormal findings (principal); E03.9 Hypothyroidism, unspecified

== ENCOUNTER 2020-06-08 09:28 | Emergency (ER) | payer OTHER ==
[~2020-06-08] VITALS: Ht 162.6 cm; Wt 75.4 kg
--- OUTSIDE RECORDS SUMMARY | 2020-06-08 09:36 | CCD ---
Author Author [facility] Organization [facility] [employer] Address Unknown Phone Unavailable Care Team Providers Care Costumer Name Role Phone Nabeel-TartellDarrellJade Unavailable PROBLEMS Type Condition ICD9-CM Code [id number] Code Onset Dates Condition S tatus SNOMED Code Notes Problem Hypothyroidism E03.9 Active 43517288 Problem Depression F32.9 Active 19056383 ALLERGIES No Known Allergies ENCOUNTERS from 1990 to 2020-05-30 Encounter Location Date Provider Diagnosis [facility] [address] [place] [address] 14 May, 21 Jade Nabeel-Tartell Hypothyroidism E03.9 and Positive pregna ncy test Z32.01 IMMUNIZATIONS Vaccine Route Administration Date Status Influenza (18 yrs & older) Flublok IM Intramuscular Feb 16, 2019 Administered HPV9 0.5mL (Gardasil 9) IM Intramuscular November 24, 2017 Adminis tered HPV9 0.5mL (Gardasil 9) IM Intramuscular Jan 07, 2017 Adminis tered Influenza (6mo & up) Fluzone IM Intramuscular Mar 18, 2016 Ad ministered Influenza (6mo & up) Fluzone Unknown Jun 18, 2015 Oth ers Influenza (6mo & up) Fluzone Unknown May 19, 2015 Ot ers SOCIAL HISTORY Tobacco Use: Social History Observation Description Date Details (start date - stop date) Former Smoker Sex Assigned At : Social History Observation Description Sex Assigned At Unknown Audit Question Answer Notes Total Score: 1 Interpretation: Alcohol Education Sexual Hx: Question Answer Notes Had sex in the last 12 months (vaginal, oral, or anal)? Yes LMP: nexplanon Have you ever had an STD? Yes Prevention Strategies discussed: Other with Men only Use protection? No Other? No Herpes? No Syphilis? No GC? No Chlamydia? Yes Drug and Alcohol Question Answer Notes Total Score: 0 Interpretation: No problems reported Alcohol Screening: Question Answer Notes Did you have a drink containing alcohol in the past year? Ye s Points 3 Interpretation Positive How often did you have six or more drinks on one occas ion in the past year? Less than monthly (1 point) How many drinks did you have on a typica l day when you were drinking in the past year? 3 or 4 (1 point) How often did you have a drink containing alcohol in t he past year? Monthly or less (1 point) Tobacco Use: Question Answer Notes Are you a: former smoker Quit January 2018 How long has it been since you last smoked? 1-5 years REASON FOR REFERRAL No Information VITAL SIGNS Weight 161 lbs May, Height 64 in May, BMI 27.63 kg/m2 May, Heart Rate 96 /min May, Respiratory Rate 18 /min May, Temperature 97.3 degrees Fahrenheit May, Oximetry 99 May, Blood pressure systolic 105 mm Hg May, Blood pressure diastolic 68 mm Hg May, MEDICATIONS Medication SIG (Take, Route, Frequency, Duration) Notes Start Da te End Date Status Flagyl 500 MG 1 tablet Orally two times a day Nov, Not-Taking Womens One Daily Orally Active Levothyroxine Sodium 100 MCG 1 tablet in the morning o n an empty stomach Orally Once a day for 90 day(s) May, Active Fluoxetine HCl 20 MG TAKE 1 CAPSULE BY MOUTH ONCE DAILY IN THE MORNING Oral for 30 Active PROCEDURES No Information RESULTS Component Value Reference Range Test, Urine Reviewed date:05/17/2020 10:11:34 Interpretation: Performing Lab:[facility], [place] [address] Test, Urine positive Negative - Internal QC Acceptable (Y/N) yes REASON FOR VISIT wants preg test/+ at home MEDICAL (GENERAL) HISTORY Type Description Date Medical History hypothyroidism Medical History PTSD, depression, anxiety Medical History BV Medical History Hx of UTIs Surgical History tissue removed right breast (old scar ti ssue) 2003 Hospitalization History childbirth Goals Section No Information Health Concerns No Information MEDICAL EQUIPMENT No Information MENTAL STATUS No Information FUNCTIONAL STATUS No Information ASSESSMENTS Encounter Date Diagnosis Assessment Notes Treatment Notes Treatm ent Clinical Notes May, Hypothyroidism (ICD-10 - E03.9) Thyoid normal prepregnacy. Labwork ordered for 6 weeks now, increased thyroid now because of increased needs during . May, Positive test (ICD-10 - Z32.01) Confirmed positive in office today. She is already taking a vitamin. PLAN OF TREATMENT Medication Medication Name Sig Start Date Stop Date Levothyroxine Sodium 100 MCG 1 tablet in the morning o n an empty stomach Orally Once a day for 90 day(s) May, Treatment Notes Assessment Notes Clinical Notes Hypothyroidism Thyoid normal prepre gnacy. Labwork ordered for 6 weeks now, increased thyroid now because of increased needs during . Positive test Confirmed positi ve in office today. She is already taking a vitamin. Future Test Test Name Order Date TSH [id number] Next Appt Details 4 Weeks Reason:f/u thyroid Provider Name:Chanel Garcia, 2020-06-12 02:20:00 PM, [address] [place], [address], Provider Name:Jade Randolph, 2020-06-14 08:15:00 AM, [address], [address], Follow Up:4 Weeksf/u thyroid Insurance Providers Payer Name Payer Address Payer Phone Insured Name Patient Relati onship to Insured Coverage Start Date Coverage End Date [facility] [address] [address] [facility] [id number] VIRAJ DANG self
--- OUTSIDE RECORDS SUMMARY | 2020-06-08 09:36 | CCD ---
Author Author [facility] [employer] Organization [facility] [employer] Address Unknown Phone Unavailable Care Team Providers Care House Officer Name Role Phone Nabeel-TartellDarrellJade Unavailable PROBLEMS Type Condition ICD9-CM Code GTA17-HC Code Onset Dates Condition S tatus SNOMED Code Notes Problem Hypothyroidism E03.9 Active 02325059 Problem Depression F32.9 Active [id number] ALLERGIES No Known Allergies ENCOUNTERS from 1991 to 2020-05-23 Encounter Location Date Provider Diagnosis [facility] [address] [place] [address] May, 21 Jade Nabeel-Tartell Hypothyroidism E03.9 IMMUNIZATIONS Vaccine Route Administration Date Status Influenza [...] REASON FOR REFERRAL No Information VITAL SIGNS No information MEDICATIONS Medication SIG (Take, Route, Frequency, Duration) [...] for 30 Active PROCEDURES No Information RESULTS No Results REASON FOR VISIT levothyroxine 100-90 days MEDICAL (GENERAL) HISTORY Type Description Date Medical [...] Clinical Notes May, Hypothyroidism (ICD-10 - E03.9) PLAN OF TREATMENT Medication Medication Name Sig Start Date Stop Date Levothyroxine Sodium 100 MCG 1 tablet in the morning o n an empty stomach Orally Once a day for 90 day(s) May, Next Appt Details Provider Name:Jade Randolph, 2020-06-14 08:15:00 AM, [address], [place], [address], Insurance Providers Payer Name Payer Address Payer Phone Insured Name Patient Relati onship to Insured Coverage Start Date Coverage End Date [facility] [address] [address] [facility] [phone] VIRAJ DANG self
--- OUTSIDE RECORDS SUMMARY | 2020-06-08 09:36 | CCD ---
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 Name Role Phone RING, K KASH PA Unavailable Unavailable RING, K KASH PA Unavailable Unavailable RING, K KASH PA Unavailable Unavailable RING, K KASH PA Unavailable Unavailable RING, K KASH PA Unavailable Unavailable RING, K KASH PA Unavailable Unavailable RING, K KASH PA Unavailable Unavailable RING, K KASH PA Unavailable Unavailable RING, K KASH PA Unavailable Unavailable RING, K KASH PA Unavailable Unavailable RING, K KASH PA Unavailable Unavailable RING, K KASH PA Unavailable Unavailable RING, K KASH PA Unavailable Unavailable RING, K KASH PA Unavailable Unavailable RING, K KASH PA Unavailable Unavailable RING, K KASH PA Unavailable Unavailable RING, K KASH PA Unavailable Unavailable RING, K KASH PA Unavailable Unavailable RING, K KASH PA Unavailable Unavailable RING, K KASH PA Unavailable Unavailable RING, K KASH PA Unavailable Unavailable Valdovinos, Milly Giselle PA Unavailable Unavailable Valdovinos, Milly Giselle PA Unavailable Unavailable Valdovinos, Milly Giselle PA Unavailable Unavailable Valdovinos, Milly Giselle PA Unavailable Unavailable Valdovinos, Milly Giselle PA Unavailable Unavailable Valdovinos, Milly Giselle PA Unavailable Unavailable Valdovinos, Milly Giselle PA Unavailable Unavailable Valdovinos, Milly Giselle PA Unavailable Unavailable Valdovinos, Milly Giselle PA Unavailable Unavailable Valdovinos, Milly Giselle PA Unavailable Unavailable Re-disclosure Warning The records that you are about to access may contain information from federally-assisted alcohol or drug abuse programs. If such information is present, then the following federally mandated warning applies: This information has been disclosed to you from records protected by federal confidentiality rules (42 CFR part 2). The federal rules prohibit you from making any further disclosure of this information unless further disclosure is expressly permitted by the written consent of the person to whom it pertains or as otherwise permitted by 42 CFR part 2. A general authorization for the release of medical or other information is NOT sufficient for this purpose. The Federal rules restrict any use of the information to criminally investigate or prosecute any alcohol or drug abuse patient.The records that you are about to access may contain highly sensitive health information, the redisclosure of which is protected by Article 27-F of the [facility] Public Health law. If you continue you may have access to information: Regarding HIV / AIDS; Provided by facilities licensed or operated by the [facility] Office of Mental Health; or Provided by the [facility] Office for People With Developmental Disabilities. If such information is present, then the following [facility] mandated warning applies: This information has been disclosed to you from confidential records which are protected by state law. State law prohibits you from making any further disclosure of this information without the specific written consent of the person to whom it pertains, or as otherwise permitted by law. Any unauthorized further disclosure in violation of state law may result in a fine or care home sentence or both. A general authorization for the release of medical or other information is NOT sufficient authorization for further disc losure. Family History Family Member Name Family Member Gender Family Member Status Date o f Status Description Data Source(s) Unknown Unknown Problem MEDENT ([facility]) Unknown Unknown Problem MEDENT ([facility] ) Encounters Encounter Providers Location Date Indications Data Source(s ) Unknown [id number] [facility] [id number] 05/22/2020 12:00:00 AM EST eCW1 ([facility]) Outpatient [address] [place] [phone] 05/17/2020 12:00:00 AM EST eCW1 ([facility]) Outpatient Attender: Giselle Alvarado melinda 02/07/2020 08:45:00 AM EDT MEDENT ([facility] Outpatient [address] [place] [phone] 11/18/2019 12:00:00 AM EDT eCW1 ([facility]) Outpatient Attender: KASH Joseph Primary 11/14/2019 05:15:00 PM EDT MEDENT ([facility]) [facility] [address] [place] [phone] 06/01/2019 12:00:00 AM EST eCW1 ([facility]) Outpatient Attender: KASH Joseph Primary 05/30/2019 07:15:00 AM EST MEDENT ([facility]) Medications Medication Brand Name Start Date Product Form Dose Route Admi nistrative Instructions Pharmacy Instructions Status Indications Reaction Description Data Source(s) 100 mcg 05/28/2020 12:00:00 AM EST tablet 30 TAKE ONE TABLET BY MOUTH EVERY MORNING ON AN EMPTY STOMACH TAKE ONE TABLET BY MOUTH EVERY MORNING O N AN EMPTY STOMACH SOLD: 06/05/2020 [facility] Levothyroxine Sodium 0.1 MG Oral Tablet Levothyroxine Sodium 100 MCG Levothyroxine Sodium 100 MCG 05/17/2020 12:00:00 AM EST active Levothyroxine Sodium 100 MCG eCW1 ([facility]) Levothyroxine Sodium 0.1 MG Oral Tablet Levothyroxine Sodium 100 MCG Levothyroxine Sodium 100 MCG 05/17/2020 12:00:00 AM EST active Levothyroxine Sodium 100 MCG eCW1 ([facility]) Metronidazole 500 MG Oral Tablet [Flagyl] Flagyl 500 MG Flag yl 500 MG 11/14/2019 12:00:00 AM EDT 1.0 {tablet} suspended Flagyl 500 MG eCW1 ([facility]) Metronidazole 500 MG Oral Tablet [Flagyl] Flagyl 11/14/2019 12:00 :00 AM EDT ORAL completed MEDENT ([facility]) Metronidazole 500 MG Oral Tablet [Flagyl] Flagyl 500 MG Flag yl 500 MG 11/14/2019 12:00:00 AM EDT 1.0 {tablet} suspended Flagyl 500 MG eCW1 ([facility]) Metronidazole 500 MG Oral Tablet [Flagyl] Flagyl 500 MG Flag yl 500 MG 11/14/2019 12:00:00 AM EDT 1.0 {tablet} active F lagyl 500 MG eCW1 ([facility]) 500 mg 11/14/2019 12:00:00 AM EDT tablet 14 TAKE ONE TABLET BY MOUTH TWICE A DAY FOR 7 DAYS TAKE ONE TABLET BY MOUTH TWICE A DAY FOR 7 DAYS SOLD: 11/14/2019 [facility] Naproxen 500 MG Oral Tablet Naproxen 05/30/2019 12:00:00 AM EST ORAL completed MEDENT ([facility]) 500 mg 05/30/2019 12:00:00 AM EST tablet 14 TAKE ONE TABLET BY MOUTH EVERY 12 HOURS NEEDED FOR PAIN , MAY TAKE AFTER 6 IN THE EVENING 05/30/2019 TAKE ONE TABLET BY MOUTH EVERY 12 HOURS NEEDED FOR PAIN , MAY TAKE AFTER 6 IN THE EVENING 05/30/2019 SOLD: 05/30/2019 [facility] 4 mg 05/30/2019 12:00:00 AM EST tablet 14 TAKE ONE TABLET BY MOUTH EVERY 8 HOURS NEEDED FOR PAIN TAKE ONE TABLET BY MOUTH EVERY 8 HOURS A S NEEDED FOR PAIN SOLD: 05/30/2019 [facility] tizanidine 4 MG Oral Tablet Tizanidine HCL 05/30/2019 12:00:00 AM EST ORAL completed MEDENT ([facility]) Insurance Providers Payer name Policy type / Coverage type Policy ID Covered libertarian ID Covered libertarian's relationship to ellis Policy Ellis Plan Information [facility] [id number] SP [id number] [facility] [id number] SP [id number] ANSI-Not a Secondary Insurance [id number] ANSI-Commercial [id number] ANSI-Medicaid [id number] ANSI-Medicaid [id number] ANSI-Not a Secondary Insurance [id number] ANSI-Not a Secondary Insurance [id number] ANSI-Medicaid [id number] [facility] (O) [id number] Self [id number] ANSI-Medicaid [id number] ANSI-Not a Secondary Insurance [id number] [facility] [id number] SP [id number] ANSI-Medicaid [id number] ANSI-Not a Secondary Insurance [id number] ANSI-Not a Secondary Insurance [id number] ANSI-Medicaid [id number] ANSI-Medicaid [id number] ANSI-Not a Secondary Insurance [id number] [facility] [id number] SP [id number] MEDICAID [id number] SP [id number] JOSE MIGUEL [id number] SP [id number] [place] [id number] S [id number] [facility] Commercial Self [facility] Commercial Self [facility] [id number] SP [id number] SELF PAY UNAVAILABLE SP [facility] [id number] SP [id number] [facility] [id number] Surgeries/Procedures Procedure Description Date Indications Data Source(s) REMOVE DRUG IMPLANT DEVICE 06/01/2019 12:00:00 AM EST eCW1 ([facility]) Therapeutic, Prophylactic Or Diagnostic Injection Subq/Im 05/30/2019 12:00:00 AM EST MEDENT ([facility]) Results ID Date Data Source [id number] 05/10/2020 09:12:00 AM EST [facility] Name Value Range Interpretation Code Description Data Saira rce(s) Supporting Document(s) SARS-CoV-2 NEGATIVE [facility] This lab was ordered by SARAH LEONARD OWN [id number] and reported by [email or web address]. ID Date Data Source [id number] 05/10/2020 12:00:00 AM EST [facility] Name Value Range Interpretation Code Description Data Saira rce(s) Supporting Document(s) SARS-CoV-2 RT-PCR negative [facility] This lab was ordered by [facility] and re ported by [facility]. ID Date Data Source [id number] 02/07/2020 09:17:00 AM EDT MEDENT ([facility]) Name Value Range Interpretation Code Description Data Saira rce(s) Supporting Document(s) Bacteria identified in Throat by Culture Laboratory test result MEDENT ([facility]) FULL REPORT IN LAB NOTES (eCW and Medent ). NORMAL NADINE PRESENT ORGANISM 1: STREPTOCOCCUS GROUP G QUANTITY OF GROWTH MODERATE ORGANISM 1: STREPTOCOCCUS GROUP G Procedure Social History Code Duration Value Status Description Data Source(s ) Smoking 05/17/2020 12:00:00 AM EST Former Smoker completed Former Smoker eCW1 ([facility]) Smoking 05/17/2020 12:00:00 AM EST Former Smoker completed Former Smoker eCW1 ([facility]) Smoking 11/18/2019 12:00:00 AM EDT Former Smoker completed Former Smoker eCW1 ([facility]) Smoking 05/30/2019 12:00:00 AM EST Patient has never smoked co mpleted Patient has never smoked MEDENT ([facility]) Vital Signs ID Date Data Source UNK Name Value Range Interpretation Code Description Data Source(s) Diastolic blood pressure 68 mm[Hg] 68 mm[Hg] eCW1 ([facility]) Systolic blood pressure 105 mm[Hg] 105 mm[Hg] e CW1 ([facility]) Body temperature 97.3 [degF] 97.3 [degF] eCW1 ( [facility]) Respiratory rate 18 /min 18 /min eCW1 ([facility]) Heart rate 96 /min 96 /min eCW1 ([facility]) Body mass index (BMI) [Ratio] 27.63 kg/m2 27.63 kg/m2 eCW1 ([facility]) Body height 64 [in_i] 64 [in_i] eCW1 ([facility]) Body weight 161 [lb_av] 161 [lb_av] eCW1 ([facility]) Body mass index (BMI) [Ratio] 26.6 kg/m2 26.6 k g/m2 MEDENT ([facility]) Body height 64 [in_i] 64 [in_i] MEDENT ([facility]) 5'4" Body weight 155.00 [lb_av] 155.00 [lb_av] MEDEN T ([facility], [facility]) Body temperature 98.7 [degF] 98.7 [degF] MEDENT ([facility], [facility]) Oxygen saturation in Arterial blood by Pulse oximetry 99 % 99 % MEDENT ([facility]) Respiratory rate 16 /min 16 /min MEDENT ( [facility], [facility]) Heart rate 66 /min 66 /min MEDENT ([facility]) Diastolic blood pressure 70 mm[Hg] 70 mm[Hg] MEDENT ([facility]) Systolic blood pressure 110 mm[Hg] 110 mm[Hg] M EDENT ([facility], [facility]) Diastolic blood pressure 64 mm[Hg] 64 mm[Hg] eCW1 ([facility]) Systolic blood pressure 108 mm[Hg] 108 mm[Hg] e CW1 ([facility]) Body temperature 97.7 [degF] 97.7 [degF] eCW1 ( [facility]) Respiratory rate 18 /min 18 /min eCW1 ([facility]) Heart rate 84 /min 84 /min eCW1 ([facility]) Body mass index (BMI) [Ratio] 27.63 kg/m2 27.63 kg/m2 W1 ([facility]) Body height 64 [in_i] 64 [in_i] eCW1 ([facility]) Body weight 161 [lb_av] 161 [lb_av] eCW1 ([facility]) Body mass index (BMI) [Ratio] 26.6 kg/m2 26.6 k g/m2 MEDENT ([facility]) Body height 64 [in_i] 64 [in_i] MEDENT ([facility]) 5'4" Body weight 155.00 [lb_av] 155.00 [lb_av] MEDEN T ([facility], [facility]) Body temperature 984.0 [degF] 984.0 [degF] MEDE NT ([facility], [facility]) Oxygen saturation in Arterial blood by Pulse oximetry 99 % 99 % MEDENT ([facility]) Respiratory rate 16 /min 16 /min MEDENT ( [facility]) Heart rate 69 /min 69 /min MEDENT ([facility]) Diastolic blood pressure 80 mm[Hg] 80 mm[Hg] MEDENT ([facility]) Systolic blood pressure 117 mm[Hg] 117 mm[Hg] M EDENT ([facility], [facility]) Diastolic blood pressure 70 mm[Hg] 70 mm[Hg] eCW1 ([facility]) Systolic blood pressure 122 mm[Hg] 122 mm[Hg] e CW1 ([facility]) Body mass index (BMI) [Ratio] 26.6 kg/m2 26.6 k g/m2 W1 ([facility]) Body height 64 [in_us] 64 [in_us] eCW1 ([facility]) Body weight Measured 155 [lb_av] 155 [lb_av] eC W1 ([facility]) Body mass index (BMI) [Ratio] 24.5 kg/m2 24.5 k g/m2 [facility] ([facility], [facility]) Body height 64 [in_i] 64 [in_i] [facility] ([facility]) 5'4" Body weight 143.00 [lb_av] 143.00 [lb_av] MEDEN T ([facility], [facility]) Body temperature 97.9 [degF] 97.9 [degF] [facility] ([facility], [facility]) Oxygen saturation in Arterial blood by Pulse oximetry 98 % 98 % [facility] ([facility], [facility]) Respiratory rate 16 /min 16 /min [facility] ( [facility], [facility]) Heart rate 73 /min 73 /min [facility] ([facility], [facility]) Diastolic blood pressure 83 mm[Hg] 83 mm[Hg] [facility] ([facility]) Systolic blood pressure 119 mm[Hg] 119 mm[Hg] [facility] Patient Treatment Plan of Care Planned Activity Planned Date Details Description Data Source (s) Levothyroxine Sodium 0.1 MG Oral Tablet 05/17/2020 12:00:00 AM EST eCW1 ([facility]) Levothyroxine Sodium 0.1 MG Oral Tablet 05/17/2020 12:00:00 AM EST eCW1 ([facility])
[2020-06-08] MEDS ORDERED: LEVO100T5 (09:38)
[2020-06-08] MEDS ORDERED: FLUO20CA22 (09:38)
[2020-06-08] MEDS ORDERED: MULTTAB20 PO (09:38)
--- OUTSIDE RECORDS SUMMARY | 2020-06-08 11:22 | CCD ---
Author Author [facility] Address Unknown Phone Unavailable Care Team Providers Care Building Custodial Supervisor Name Role Phone RING, K KASH PA [...] Milly Giselle PA Unavailable Unavailable Valdovinos, Milly Gsielle PA Unavailable Unavailable Valdovinos, Milly Giselle PA [...] is protected by Article 27-F of the [facility] Public Health law. If you continue you may have access to information: Regarding HIV / AIDS; Provided by facilities licensed or operated by the [facility] Office of Mental Health; or Provided by the [facility] Office for People With Developmental Disabilities. If such information is present, then the following [facility] mandated warning applies: This information [...] law may result in a fine or long-term sentence or both. A general authorization for the release of medical or other information is NOT sufficient authorization for further disc losure. Family History Family Member Name Family Member Gender Family Member Status Date o f Status Description Data Source(s) Unknown Unknown Problem MEDENT ([facility]) Unknown Unknown Problem MEDENT ([facility] Zamarripa MD ) Encounters Encounter Providers Location Date Indications Data Source(s ) Unknown [address] [facility] [id number] 05/22/2020 12:00:00 AM EST eCW1 (Formerly [facility]) Outpatient [address] [place] [id number] 05/17/2020 12:00:00 AM EST eCW1 (Formerly [facility]) Outpatient Attender: Giselle Alvarado melinda 02/07/2020 08:45:00 AM EDT MEDENT ([facility] Outpatient [address] [place] [id number] 11/18/2019 12:00:00 AM EDT eCW1 (Formerly [facility]) Outpatient Attender: KASH Joseph Primary 11/14/2019 05:15:00 PM EDT MEDENT ([facility]) [facility] [address] [place] [phone] 06/01/2019 12:00:00 AM EST eCW1 (Formerly [facility]) Outpatient Attender: KASH Joseph Primary 05/30/2019 07:15:00 AM EST MEDENT ([facility]) Medications Medication Brand [...] EST active Levothyroxine Sodium 100 MCG eCW1 ([facility]) Levothyroxine Sodium 0.1 MG Oral Tablet Levothyroxine Sodium 100 MCG Levothyroxine Sodium 100 MCG 05/17/2020 12:00:00 AM EST active Levothyroxine Sodium 100 MCG eCW1 ([facility]) Metronidazole 500 MG Oral Tablet [Flagyl] Flagyl 500 MG Flag yl 500 MG 11/14/2019 12:00:00 AM EDT 1.0 {tablet} suspended Flagyl 500 MG eCW1 ([facility]) Metronidazole 500 MG Oral Tablet [Flagyl] Flagyl 11/14/2019 12:00 :00 AM EDT ORAL completed MEDENT ([facility]) Metronidazole 500 MG Oral Tablet [Flagyl] Flagyl 500 MG Flag yl 500 MG 11/14/2019 12:00:00 AM EDT 1.0 {tablet} suspended Flagyl 500 MG eCW1 ([facility]) Metronidazole 500 MG Oral Tablet [Flagyl] Flagyl 500 MG Flag yl 500 MG 11/14/2019 12:00:00 AM EDT 1.0 {tablet} active F lagyl 500 MG eCW1 ([facility]) 500 mg 11/14/2019 12:00:00 AM EDT tablet 14 TAKE ONE TABLET BY MOUTH TWICE A DAY FOR 7 DAYS TAKE ONE TABLET BY MOUTH TWICE A DAY FOR 7 DAYS SOLD: 11/14/2019 [facility] Naproxen 500 MG Oral Tablet Naproxen 05/30/2019 12:00:00 AM EST ORAL completed MEDENT ([facility]) 500 mg 05/30/2019 12:00:00 AM EST tablet [...] ORAL completed MEDENT ([facility] Insurance Providers Payer name Policy type / Coverage type Policy ID Covered libertarian ID Covered libertarian's relationship to ellis Policy Ellis Plan Information [facility] [id number] SP [id number] [facility] [id number] SP [id number] ANSI-Not a Secondary Insurance [id number] ANSI-Commercial [id number] ANSI-Medicaid [id number] ANSI-Medicaid [id number] ANSI-Not a Secondary Insurance [id number] ANSI-Not a Secondary Insurance [id number] ANSI-Medicaid [id number] [facility] Health Maintenance Organization (O) [id number] Self [id number] ANSI-Medicaid [id number] ANSI-Not a Secondary Insurance [id number] [facility] [id number] SP [id number] ANSI-Medicaid [id number] ANSI-Not a Secondary Insurance [id number] ANSI-Not a Secondary Insurance [id number] ANSI-Medicaid [id number] ANSI-Medicaid [id number] ANSI-Not a Secondary Insurance [id number] [facility] [id number] SP [id number] MEDICAID [id number] SP [id number] JOSE MIGUEL [id number] SP [id number] [place] [id number] S [id number] Posey Care Commercial Self MVP Health Care Commercial Self [facility] [id number] SP [id number] SELF PAY UNAVAILABLE SP [facility]NA[facility]A [facility] [id number] SP [id number] [facility] [id number] Surgeries/Procedures Procedure Description Date Indications Data Source(s) REMOVE DRUG IMPLANT DEVICE 06/01/2019 12:00:00 AM EST eCW1 ([facility]) Therapeutic, Prophylactic Or Diagnostic Injection Subq/Im 05/30/2019 12:00:00 AM EST MEDENT ([facility]) Results ID Date Data Source [id number] 05/10/2020 09:12:00 AM EST [facility] Name Value Range Interpretation Code Description Data Saira rce(s) Supporting Document(s) SARS-CoV-2 NEGATIVE [facility] This lab was ordered by [facility]AH [facility]ON[facility] [id number] and reported by [facility]. ID Date Data Source [id number] 05/10/2020 12:00:00 AM EST [facility] Name Value Range Interpretation Code Description Data Saira rce(s) Supporting Document(s) SARS-CoV-2 RT-PCR negative [facility] This lab was ordered by [employer] and re ported by [employer]. ID Date Data Source [id number] 02/07/2020 09:17:00 AM EDT MEDENT ([facility]) Name Value Range Interpretation Code Description Data Saira rce(s) Supporting Document(s) Bacteria identified in Throat by Culture Laboratory test result MEDENT ([facility]) FULL REPORT IN LAB NOTES (eCW and Medent ). NORMAL NADINE PRESENT ORGANISM 1: STREPTOCOCCUS GROUP G QUANTITY OF GROWTH MODERATE ORGANISM 1: STREPTOCOCCUS GROUP G Procedure Social History Code Duration Value Status Description Data Source(s ) Smoking 05/17/2020 12:00:00 AM EST Former Smoker completed Former Smoker eCW1 ([facility]) Smoking 05/17/2020 12:00:00 AM EST Former Smoker completed Former Smoker eCW1 ([facility]) Smoking 11/18/2019 12:00:00 AM EDT Former Smoker completed Former Smoker eCW1 ([facility]) Smoking 05/30/2019 12:00:00 AM EST Patient has never smoked co mpleted Patient has never smoked MEDENT ([facility]) Vital Signs ID Date Data Source UNK Name Value Range Interpretation Code Description Data Source(s) Diastolic blood pressure 68 mm[Hg] 68 mm[Hg] eCW1 ([facility]) Systolic blood pressure 105 mm[Hg] 105 mm[Hg] e CW1 ([facility]) Body temperature 97.3 [degF] 97.3 [degF] eCW1 ( [facility]) Respiratory rate 18 /min 18 /min eCW1 ([facility]) Heart rate 96 /min 96 /min eCW1 ([facility]) Body mass index (BMI) [Ratio] 27.63 kg/m2 27.63 kg/m2 eCW1 ([facility]) Body height 64 [in_i] 64 [in_i] eCW1 ([facility]) Body weight 161 [lb_av] 161 [lb_av] eCW1 ([facility]) Body mass index (BMI) [Ratio] 26.6 kg/m2 26.6 k g/m2 MEDENT ([facility]) Body height 64 [in_i] 64 [in_i] MEDENT ([facility]) 5'4" Body weight 155.00 [lb_av] 155.00 [lb_av] MEDEN T ([facility]) Body temperature 98.7 [degF] 98.7 [degF] MEDENT ([facility]) Oxygen saturation in Arterial blood by Pulse oximetry 99 % 99 % MEDENT ([facility]) Respiratory rate 16 /min 16 /min MEDENT ( [facility]) Heart rate 66 /min 66 /min MEDENT ([facility]) Diastolic blood pressure 70 mm[Hg] 70 mm[Hg] MEDENT ([facility]) Systolic blood pressure 110 mm[Hg] 110 mm[Hg] M EDENT ([facility]) Diastolic blood pressure 64 mm[Hg] 64 mm[Hg] eCW1 ([facility]) Systolic blood pressure 108 mm[Hg] 108 mm[Hg] e CW1 ([facility]) Body temperature 97.7 [degF] 97.7 [degF] eCW1 ( [facility]) Respiratory rate 18 /min 18 /min eCW1 ([facility]) Heart rate 84 /min 84 /min eCW1 ([facility]) Body mass index (BMI) [Ratio] 27.63 kg/m2 27.63 kg/m2 W1 ([facility]) Body height 64 [in_i] 64 [in_i] eCW1 ([facility]) Body weight 161 [lb_av] 161 [lb_av] eCW1 ([facility]) Body mass index (BMI) [Ratio] 26.6 kg/m2 26.6 k g/m2 MEDENT ([facility]) Body height 64 [in_i] 64 [in_i] MEDENT ([facility]) 5'4" Body weight 155.00 [lb_av] 155.00 [lb_av] MEDEN T ([facility]) Body temperature 984.0 [degF] 984.0 [degF] MEDE NT ([facility]) Oxygen saturation in Arterial blood by Pulse oximetry 99 % 99 % MEDENT ([facility]) Respiratory rate 16 /min 16 /min MEDENT ( [facility]) Heart rate 69 /min 69 /min MEDENT ([facility]) Diastolic blood pressure 80 mm[Hg] 80 mm[Hg] MEDENT ([facility]) Systolic blood pressure 117 mm[Hg] 117 mm[Hg] M EDENT ([facility]) Diastolic blood pressure 70 mm[Hg] 70 mm[Hg] eCW1 ([facility]) Systolic blood pressure 122 mm[Hg] 122 mm[Hg] e CW1 ([facility]) Body mass index (BMI) [Ratio] 26.6 kg/m2 26.6 k g/m2 W1 ([facility]) Body height 64 [in_us] 64 [in_us] eCW1 ([facility]) Body weight Measured 155 [lb_av] 155 [lb_av] eC W1 ([facility]) Body mass index (BMI) [Ratio] 24.5 kg/m2 24.5 k g/m2 [facility]) Body height 64 [in_i] 64 [in_i] [facility] ([facility], [facility]) 5'4" Body weight 143.00 [lb_av] 143.00 [lb_av] MEDEN T ([facility], [facility]) Body temperature 97.9 [degF] 97.9 [degF] [facility] ([facility]) Oxygen saturation in Arterial blood by Pulse oximetry 98 % 98 % [facility] ([facility]) Respiratory rate 16 /min 16 /min [facility] ( [facility]) Heart rate 73 /min 73 /min [facility] ([facility], [facility]) Diastolic blood pressure 83 mm[Hg] 83 mm[Hg] [facility] Systolic blood pressure 119 mm[Hg] 119 mm[Hg] [facility] Patient Treatment Plan of Care Planned Activity Planned Date Details Description Data Source (s) Levothyroxine Sodium 0.1 MG Oral Tablet 05/17/2020 12:00:00 AM EST eCW1 ([facility]) Levothyroxine Sodium 0.1 MG Oral Tablet 05/17/2020 12:00:00 AM EST eCW1 ([facility])
[2020-06-08] MEDS ORDERED: NS 1,000 ML IV ONE (12:00)
[2020-06-08 12:37] LABS: BASO % 0.3 % (0.0-1.0); EOS # 0.1 10^3/uL (0.0-0.5); EOS % 0.6 % (0.0-3.0); HEMATOCRIT 38.8 % (36.0-47.0); HEMOGLOBIN 12.6 g/dl (12.0-15.5); LYMPH # 1.5 10^3/uL (1.5-5.0); LYMPH % 11.7 % (24.0-44.0); MEAN CORPUSCULAR HEMOGLOBIN 28.9 pg (27.0-33.0); MEAN CORPUSCULAR HGB CONC 32.5 g/dl (32.0-36.5); MONO # 0.4 10^3/uL (0.0-0.8); MONO % 3.5 % (0.0-5.0); NEUTROPHILS # 10.4 10^3/uL (1.5-8.5); NEUTROPHILS % 83.4 % (36.0-66.0); PLATELET COUNT, AUTOMATED 316 10^3/uL (150-450); RED BLOOD COUNT 4.36 10^6/uL (4.00-5.40); WHITE BLOOD COUNT 12.4 10^3/uL (4.0-10.0)
[2020-06-08 13:12] LABS: RSV AMPLIFICATION NEGATIVE (NEGATIVE)
[2020-06-08 13:25] LABS: ALBUMIN 3.7 GM/DL (3.2-5.2); BILIRUBIN,DIRECT 0.1 MG/DL (0.0-0.2); BILIRUBIN,TOTAL 0.5 MG/DL (0.2-1.0); MAGNESIUM LEVEL 1.8 MG/DL (1.8-2.4); TOTAL PROTEIN 7.1 GM/DL (6.4-8.2)
[2020-06-08] MEDS ORDERED: ZOFR4TAB16 PO (14:46)
[2020-06-08 15:08] VITALS: BP 104/57
== END 2020-06-08 15:09 | disposition home or self-care (01) ==
LOC: M ED 09:28
DX: O21.9 Vomiting of pregnancy, unspecified (principal); O99.611 Diseases of the digestive system complicating pregnancy, first trimester; O99.281 Endocrine, nutritional and metabolic diseases complicating pregnancy, first trimester; O99.331 Smoking (tobacco) complicating pregnancy, first trimester; O99.321 Drug use complicating pregnancy, first trimester; Z3A.08 8 weeks gestation of pregnancy

== ENCOUNTER → 2020-06-12 | Outpatient (REF) | payer OTHER ==
[~2020-06-12] MED LIST: FLUO20CA22; LEVO100T5; MULTTAB20 PO; ZOFR4TAB16 PO
[2020-06-12 18:15] LABS: HEMATOCRIT 37.8 % (36.0-47.0); HEMOGLOBIN 12.3 g/dl (12.0-15.5); MEAN CORPUSCULAR HEMOGLOBIN 29.3 pg (27.0-33.0); MEAN CORPUSCULAR HGB CONC 32.5 g/dl (32.0-36.5); PLATELET COUNT, AUTOMATED 342 10^3/uL (150-450); WHITE BLOOD COUNT 11.9 10^3/uL (4.0-10.0)
[2020-06-12 18:47] LABS: FREE T4 0.95 NG/DL (0.76-1.46)
[2020-06-12 19:28] LABS: HEPATITIS C VIRUS ABY INDEX 0.1 INDEX (<0.8); HIV 1&2 SCREEN CENTAUR NEGATIVE (NEGATIVE)
[2020-06-12 19:47] LABS: CHLAMYDIA DNA AMPLIFICATION NEGATIVE (NEGATIVE); GC DNA AMPLIFICATION NEGATIVE (NEGATIVE)
== END ==
LOC: M PLALAB 15:48
PROVIDERS: ATTEND Advanced Practice Midwife
DX: O34.211 Maternal care for low transverse scar from previous cesarean delivery (principal)

== ENCOUNTER → 2020-07-10 | Outpatient (REF) | payer OTHER | LOC: M PLALAB 16:02 | PROVIDERS: ATTEND Obstetrics & Gynecology | DX: E03.9 Hypothyroidism, unspecified (principal) ==

== ENCOUNTER → 2020-07-11 | Outpatient (REF) | payer OTHER ==
[2020-07-11 12:39] LABS: FREE T4 1.17 NG/DL (0.76-1.46); THYROID STIMULATING HORMONE 1.26 uIU/ML (0.358-3.740)
== END ==
LOC: M PLALAB 08:18
PROVIDERS: ATTEND Obstetrics & Gynecology
DX: O99.282 Endocrine, nutritional and metabolic diseases complicating pregnancy, second trimester (principal); E03.9 Hypothyroidism, unspecified

== ENCOUNTER → 2020-08-10 | Outpatient (CLI) | payer OTHER | LOC: M WHC 15:55 | PROVIDERS: ATTEND Obstetrics & Gynecology | DX: Z36.89 Encounter for other specified antenatal screening (principal); Z3A.17 17 weeks gestation of pregnancy; Z53.9 Procedure and treatment not carried out, unspecified reason ==

== ENCOUNTER → 2020-08-31 | Outpatient (REF) | payer OTHER | LOC: M PLALAB 15:16 | PROVIDERS: ATTEND Family Medicine | DX: E03.9 Hypothyroidism, unspecified (principal) ==

== ENCOUNTER → 2020-09-05 | Outpatient (CLI) | payer OTHER ==
--- NOTE | 2020-09-05 10:06 | REP ---
INDICATION: ANATOMY COMPARISON: None. TECHNIQUE: Transabdominal obstetrical ultrasound with color Doppler evaluation. FINDINGS: Examination demonstrates a single live intrauterine in cephalic presentation. motion is identified by technologist. Placenta is noted posterior and grade 1 without evidence for placenta previa or abruption. Amniotic fluid volume is normal. Cervix measures 4.0 cm in length and appears closed.. Gestational age by LMP 21 weeks 2 days with ELAN 01/14/2021. Gestational age by current measurements 20 weeks 5 days with ELAN 01/18/2021. FHR equals 128 beats per minute. BPD: 4.8 cm at 20 weeks 3 days HC: 18.6 cm at 21 weeks 0 days AC: 15.3 cm at 20 weeks 4 days FL: 3.3 cm at 20 weeks 2 days HL: 3.4 cm at 21 weeks 4 days HC/AC: 1.21 Estimated weight 358 grams (13thpercentile). Anatomical assessment demonstrates normal structures including cranium, choroid plexus, cavum, cerebellum/posterior fossa, facial features, lungs, diaphragm, stomach, cord insertion/three-vessel cord, kidneys/bladder, spine, and extremities. IMPRESSION: Single live intrauterine in cephalic presentation demonstrating appropriate estimated weight/growth. Limited evaluation of the heart/ventricular outflow tracts. Remainder of the anatomical assessment is complete and normal. <Electronically signed by Pasquale Baez > 09/05/20 [id number]
== END ==
LOC: M WHC 07:26
PROVIDERS: ATTEND Obstetrics & Gynecology
DX: Z36.89 Encounter for other specified antenatal screening (principal); Z3A.21 21 weeks gestation of pregnancy

== ENCOUNTER → 2020-09-10 | Outpatient (CLI) | payer OTHER | LOC: M WHC 08:12 | PROVIDERS: ATTEND Obstetrics & Gynecology | DX: Z3A.22 22 weeks gestation of pregnancy (principal); Z53.9 Procedure and treatment not carried out, unspecified reason ==

== ENCOUNTER → 2020-09-24 | Outpatient (CLI) | payer OTHER ==
--- NOTE | 2020-09-24 16:04 | REP ---
INDICATION: F/U ANATOMY COMPARISON: 09/10/2020 TECHNIQUE: Transabdominal obstetrical ultrasound with color Doppler evaluation. FINDINGS: Examination demonstrates a single live intrauterine in cephalic presentation. motion is identified by technologist. Placenta is noted posterior and grade 1 without evidence for placenta previa or abruption. Amniotic fluid volume is normal. Cervix measures 4.7 cm in length and appears closed.. Gestational age by LMP 24 weeks 0 days with ELAN 01/14/2021. Gestational age by current measurements 23 weeks 1 day with ELAN 01/20/2021. FHR equals 125 beats per minute. Estimated weight 564 grams (11thpercentile). Anatomical assessment demonstrates normal structures including cranium, choroid plexus, cavum, cerebellum/posterior fossa, facial features, lungs, four-chamber heart/ventricular outflow tracts, diaphragm, stomach, cord insertion/three-vessel cord, kidneys/bladder, and extremities. IMPRESSION: Single live intrauterine in cephalic presentation demonstrating appropriate estimated weight. In conjunction with prior examination anatomical assessment is complete and normal. <Electronically signed by Pasquale Baez > 09/24/20 1600
== END ==
LOC: M WHC 14:45
PROVIDERS: ATTEND Obstetrics & Gynecology
DX: Z36.2 Encounter for other antenatal screening follow-up (principal); Z3A.24 24 weeks gestation of pregnancy

== ENCOUNTER → 2020-10-10 | Outpatient (REF) | payer OTHER | LOC: M PLALAB 07:40 | PROVIDERS: ATTEND Obstetrics & Gynecology | DX: Z36.89 Encounter for other specified antenatal screening (principal); Z3A.23 23 weeks gestation of pregnancy ==

== ENCOUNTER → 2020-10-19 | Outpatient (REF) | payer OTHER ==
[2020-10-19 16:11] LABS: HEMATOCRIT 31.5 % (36.0-47.0); MEAN CORPUSCULAR HEMOGLOBIN 27.5 pg (27.0-33.0); MEAN CORPUSCULAR HGB CONC 31.7 g/dl (32.0-36.5); MEAN CORPUSCULAR VOLUME 86.8 fl (80.0-96.0); PLATELET COUNT, AUTOMATED 322 10^3/uL (150-450); RED BLOOD COUNT 3.63 10^6/uL (4.00-5.40); WHITE BLOOD COUNT 10.5 10^3/uL (4.0-10.0)
[2020-10-19 16:44] LABS: FREE T4 0.95 NG/DL (0.76-1.46); THYROID STIMULATING HORMONE 0.393 uIU/ML (0.358-3.740)
== END ==
LOC: M PLALAB 12:23
PROVIDERS: ATTEND Obstetrics & Gynecology
DX: Z36.89 Encounter for other specified antenatal screening (principal); Z3A.26 26 weeks gestation of pregnancy

== ENCOUNTER → 2020-12-18 | Outpatient (REF) | payer OTHER ==
[~2020-12-18] MED LIST changes: +LEVO2TA PO
== END ==
LOC: M SFHCWAGY 16:53
PROVIDERS: ATTEND Specialist
DX: Z36.89 Encounter for other specified antenatal screening (principal); Z3A.00 Weeks of gestation of pregnancy not specified

== ENCOUNTER → 2021-01-03 | Outpatient (CLI) | payer OTHER ==
[~2021-01-03] MED LIST changes: +IBUP80TA PO; +OXYC1TAB23 PO
== END ==
LOC: M LABSMTC 09:14
PROVIDERS: ATTEND Anesthesiology
DX: Z01.812 Encounter for preprocedural laboratory examination (principal); Z20.822 Contact with and (suspected) exposure to COVID-19

== ENCOUNTER 2021-01-08 05:54 | Inpatient (IN) | payer OTHER ==
[2021-01-08] VITALS (7 sets, daily range): BP systolic 107–133; BP diastolic 61–88
[~2021-01-08] VITALS: Ht 165.1 cm; Wt 96.7 kg
[~2021-01-08 05:54] MED LIST changes: -IBUP80TA PO; -OXYC1TAB23 PO
[2021-01-08] MEDS ORDERED: BICITRA 30ML SOLN UDC PO ONE (06:10)
[2021-01-08] MEDS ORDERED: ceFAZolin SOD 2 GM in IV 1 EA IV ONE (06:10)
[2021-01-08] MEDS ORDERED: LR 1,000 ML IV ONE (06:45)
[2021-01-08 07:10] LABS: HEMATOCRIT 37.7 % (36.0-47.0); HEMOGLOBIN 12.3 g/dl (12.0-15.5); MEAN CORPUSCULAR HEMOGLOBIN 28.5 pg (27.0-33.0); MEAN CORPUSCULAR HGB CONC 32.6 g/dl (32.0-36.5); MEAN CORPUSCULAR VOLUME 87.5 fl (80.0-96.0); PLATELET COUNT, AUTOMATED 237 10^3/uL (150-450); RED BLOOD COUNT 4.31 10^6/uL (4.00-5.40); WHITE BLOOD COUNT 7.8 10^3/uL (4.0-10.0)
[2021-01-08] MEDS ORDERED: MORPHINE PRES-FREE INJ 10 MG/10 ML VIAL (J2274) As Ordered ONE (07:14)
[2021-01-08] MEDS ORDERED: PHENYLephrine 500MCG 5ML (100MCG/ML) SYRINGE As Ordered ONE (07:17)
[2021-01-08] MEDS ORDERED: OXYTOCIN INJ 10 UNITS/ML VIAL (J2590) As Ordered ONE ×3 (07:19→08:04)
[2021-01-08] MEDS ORDERED: KETOROLAC 60MG 2ML VIAL As Ordered ONE (07:22)
[2021-01-08] MEDS ORDERED: METOCLOPRAMIDE INJ 10MG/2ML VIAL (J2765 PER 1) As Ordered ONE (07:22)
[2021-01-08] MEDS ORDERED: ONDANSETRON 4MG/2ML VIAL As Ordered ONE (07:22)
[2021-01-08] MEDS ORDERED: diphenhydrAMINE 50MG/ML VIAL (J1200) IV PRN (07:41)
[2021-01-08] MEDS ORDERED: ONDANSETRON 4MG/2ML VIAL IV PRN ×3 (07:41→09:10)
[2021-01-08] MEDS ORDERED: NALBUPHINE HCL 10 MG/ML AMP (J2300) IV PRN ×2 (07:41→09:10)
[2021-01-08] MEDS ORDERED: NALOXONE INJ 0.4MG/1ML VIAL (J2310 PER 1MG) IV PRN ×2 (07:41)
[2021-01-08] MEDS ORDERED: METOCLOPRAMIDE INJ 10MG/2ML VIAL (J2765 PER 1) IV PRN (07:41)
[2021-01-08] MEDS ORDERED: OXYTOCIN 30 UNITS IN 0.9% NaCl 500ML IV BAG (J2590) As Ordered ONE (08:43)
[2021-01-08] MEDS ORDERED: SIMETHICONE 80MG CHEW TAB PO PRN (08:50)
[2021-01-08] MEDS ORDERED: MEASLES,MUMPS,RUBELLA VACCINE INJ (MMR-II) (90707) SC SCH (08:50)
[2021-01-08] MEDS ORDERED: RHOGAM 300 MCG (1500 IU) INJ (J2790) IM SCH (08:50)
[2021-01-08] MEDS ORDERED: LR 1,000 ML IV SCH (08:50)
[2021-01-08] MEDS ORDERED: OXYTOCIN DRIP 30 UNITS in IV 1 EA IV SCH (08:50)
[2021-01-08] MEDS: PRENATAL VITAMINS CHEWABLE TABLET PO SCH (09:00)
[2021-01-08] MEDS ORDERED: MEPERIDINE INJ 25 MG/ML VIAL (J2175) IV PRN (09:10)
[2021-01-08] MEDS ORDERED: HYDROMORPHONE HCL 0.5 MG/ 0.5 ML SYRINGE (J1170 PER 1) IV PRN (09:10)
[2021-01-08] MEDS ORDERED: fentaNYL 100 MCG/2 ML INJECTION (J3010) IV PRN (09:10)
[2021-01-08] MEDS ORDERED: oxyCODONE 5MG TAB PO PRN (09:10)
--- NOTE | 2021-01-08 09:18 | ROOPDOC ---
[facility] Report Of Operation Report of Operation DATE OF PROCEDURE: 01/08/21 Report of operation Preoperative diagnosis: 39 weeks gestation, prior section Postoperative diagnosis: Same Procedure: Repeat low transverse section and bilateral tubal ligation. Surgeon: Amanda Lagos M.D. Asst.: Radha Ponce CNM EBL: 500 ml. Urine output: 100 mL's. Findings: 6 lbs. 15 oz. female infant, 's 8 and 9 g Surgically absent right ovary, normal uterus, normal left ovary and fallopian tube. Operative summary: Patient taken to the operating room where spinal anesthesia was induced. She was prepped and draped sterile fashion in the supine position. A Inman catheter was placed. A Pfannenstiel skin incision was made with scalpel. Fascia was incised and extended bilaterally. The peritoneal cavity was entered. A Mobius retractor was placed. A bladder flap was created. A curvilinear incision was made in lower uterine segment until Clear fluid was noted. The incision was extended manually. The infant was delivered from the vertex position without difficulty. Cord was doubly clamped and cut. The was handed the awaiting nurses. The placenta was expressed. Uterus was closed with O-Vicryl in a running locked fashion. A second imbricating layer of Vicryl was placed. Attention was turned to the fallopian tubes. A Wayne clamp was used to grasp the fallopian tubes at the midportion. A window was created in the broad ligament free tie of 2-0 chromic was placed around the segment of tube. The entire tube was excised bilaterally and sent to pathology. Peritoneum was closed with 2-0 Vicryl a running fashion. Fascia was closed with 0 Vicryl in running fashion. Skin was closed 4-0 Monocryl subcuticular sutures. Sponge, instrument and needle counts were correct. Radha Ponce CNM, assisted with all aspects of the procedure. She helped close each layer of the incision and deliver the fetus. AMANDA LAGOS MD Jan 08, 2021 09:18
[2021-01-08] MEDS: PERCOCET 5MG/325MG TAB PO PRN (11:21)
[2021-01-08] MEDS: KETOROLAC 30 MG/ML 1ML VIAL IV SCH ×2 (14:15→19:34)
[2021-01-08] MEDS ORDERED: OXYC1TAB23 PO (21:13)
[2021-01-08] MEDS ORDERED: IBUP80TA PO (21:13)
[2021-01-09] MEDS: KETOROLAC 30 MG/ML 1ML VIAL IV SCH (01:37)
[2021-01-09 02:00] VITALS: BP 111/56
[2021-01-09 05:53] VITALS: BP 111/53
[2021-01-09] MEDS: LEVOTHYROXINE 137MCG TABLET (0.137MG) PO SCH (05:55)
[2021-01-09 07:17] LABS: HEMATOCRIT 33.8 % (36.0-47.0); HEMOGLOBIN 11.1 g/dl (12.0-15.5); MEAN CORPUSCULAR HEMOGLOBIN 28.9 pg (27.0-33.0); MEAN CORPUSCULAR HGB CONC 32.8 g/dl (32.0-36.5); PLATELET COUNT, AUTOMATED 213 10^3/uL (150-450); RED BLOOD COUNT 3.84 10^6/uL (4.00-5.40); WHITE BLOOD COUNT 7.9 10^3/uL (4.0-10.0)
[2021-01-09] MEDS: PERCOCET 5MG/325MG TAB PO PRN ×4 (07:46→21:04)
[2021-01-09] MEDS: PRENATAL VITAMINS CHEWABLE TABLET PO SCH (09:00)
[2021-01-09 10:00] VITALS: BP 119/56
[2021-01-09] MEDS: IBUPROFEN 800 MG TAB PO SCH ×2 (11:26→18:45)
[2021-01-09 14:13] VITALS: BP 122/70
[2021-01-09 18:00] VITALS: BP 124/72
[2021-01-09 22:00] VITALS: BP 121/58
[2021-01-10 02:00] VITALS: BP 123/60
[2021-01-10] MEDS: IBUPROFEN 800 MG TAB PO SCH ×2 (02:20→09:33)
[2021-01-10] MEDS: LEVOTHYROXINE 137MCG TABLET (0.137MG) PO SCH (05:21)
[2021-01-10 06:20] VITALS: BP 142/79
[2021-01-10] MEDS: PRENATAL VITAMINS CHEWABLE TABLET PO SCH (09:32)
[2021-01-10 13:14] VITALS: BP 128/72
--- NOTE | 2021-01-10 14:15 | DS.PDOC ---
Discharge Summary General Date of Admission Jan 08, 2021 at 05:54 Date of Discharge January 10, 2021 Discharge Summary DATE OF ADMISSION: 01/08/2021 DATE OF DISCHARGE: 01/10/2021 ADMISSION DIAGNOSIS: 39+ weeks gestation, history of low transverse section, satisfied parity. DISCHARGE DIAGNOSIS: Same DISCHARGE SUMMARY: The patient was admitted at 39+ weeks gestation for a scheduled elective repeat low transverse section and bilateral tubal ligation. The intraoperative course was uncomplicated. Her postoperative course was uncomplicated as well. On postoperative day #2, she was meeting all discharge criteria. PHYSICAL EXAMINATION ON DATE OF DISCHARGE: Normotensive. Normal heart rate. Afebrile. HEART: Regular rate and rhythm. No murmurs, gallops, or rubs. LUNGS: Clear to auscultation bilaterally. ABDOMEN: Soft, nontender, nondistended. Incision bandage clean and dry. EXTREMITIES: Nonedematous, nontender. She was meeting all discharge criteria on postoperative day #2. We reviewed routine fever, infectious, pain, and bleeding precautions. She is to followup in 2 weeks for incision check. Her postoperative medications are Percocet, Motrin, and Colace. Vital Signs/I&Os Vital Signs Date Time Temp Pulse Resp B/P (MAP) Pulse Ox O2 Delivery O2 Flow Rate FiO2 01/10/21 13:14 128/72 (90) 01/10/21 06:20 97.0 82 16 96 Room Air Discharge Medications Scheduled Ibuprofen (Ibuprofen) 800 Mg Tablet, 800 MG PO Q8H No122/Iron/Folic Acid ( Multi Tablet) 1 Each Tablet, 1 TAB PO DAILY, (Reported) Scheduled PRN Oxycodone HCl/Acetaminophen (Oxycodone-Acetaminophen 5-325) 1 Each Tablet, 1 TAB PO TIDP PRN for pain Miscellaneous Medications Fluoxetine Hcl (Fluoxetine HCl) 20 Mg Capsule, (Reported) Levothyroxine Sodium (Synthroid) 200 Mcg Tablet, 200 MCG PO, (Reported) Allergies Coded Allergies: No Known Allergies (Unverified , 06/08/20) ART KAUR DO Jan 10, 2021 14:15
== END 2021-01-10 14:02 | disposition home or self-care (01) | DRG 540 ==
LOC: M LDI 05:54 → M OBS 10:17
PROVIDERS: ADMIT Specialist; ATTEND Specialist
PROC: 0UT70ZZ Resection of Bilateral Fallopian Tubes, Open Approach (ICD-10-PCS; 2021-01-08)
PROC: 10D00Z1 Extraction of Products of Conception, Low, Open Approach (ICD-10-PCS; principal; 2021-01-08 07:30)
DX: O34.211 Maternal care for low transverse scar from previous cesarean delivery (principal); Z3A.39 39 weeks gestation of pregnancy; Z37.0 Single live birth; Z30.2 Encounter for sterilization

== ENCOUNTER → 2021-01-30 | Outpatient (REF) | payer OTHER ==
[~2021-01-30] MED LIST changes: +IBUP80TA PO; +OXYC1TAB23 PO
[2021-01-30 18:30] LABS: BASO # 0.1 10^3/uL (0.0-0.2); BASO % 0.8 % (0.0-1.0); EOS # 0.8 10^3/uL (0.0-0.5); EOS % 8.9 % (0.0-3.0); HEMATOCRIT 50.9 % (36.0-47.0); HEMOGLOBIN 16.3 g/dl (12.0-15.5); LYMPH # 2.6 10^3/uL (1.5-5.0); LYMPH % 30.3 % (24.0-44.0); MEAN CORPUSCULAR HEMOGLOBIN 28.6 pg (27.0-33.0); MEAN CORPUSCULAR VOLUME 89.3 fl (80.0-96.0); MONO # 0.5 10^3/uL (0.0-0.8); NEUTROPHILS # 4.6 10^3/uL (1.5-8.5); NEUTROPHILS % 53.8 % (36.0-66.0); PLATELET COUNT, AUTOMATED 328 10^3/uL (150-450); WHITE BLOOD COUNT 8.5 10^3/uL (4.0-10.0)
[2021-01-30 18:50] LABS: ALBUMIN 3.8 GM/DL (3.2-5.2); ALT/SGPT 44 U/L (12-78); BILIRUBIN,TOTAL 0.5 MG/DL (0.2-1.0); BLOOD UREA NITROGEN 18 MG/DL (7-18); CALCIUM LEVEL 10.1 MG/DL (8.5-10.1); CARBON DIOXIDE LEVEL 29 MEQ/L (21-32); CHLORIDE LEVEL 106 MEQ/L (98-107); CHOLESTEROL LEVEL 210 MG/DL (<200); CHOLESTEROL RISK RATIO 4.565 (<5); CREATININE FOR GFR 0.87 MG/DL (0.55-1.30); FREE T4 1.82 NG/DL (0.76-1.46); GLOMERULAR FILTRATION RATE > 60.0 (>60); GLUCOSE, FASTING 77 MG/DL (70-100); HDL CHOLESTEROL 46 MG/DL (>40); LDL CHOLESTEROL 128 MG/DL (<100); NON-HDL-C 164 MG/DL; POTASSIUM SERUM 4.7 MEQ/L (3.5-5.1); SODIUM LEVEL 142 MEQ/L (136-145); THYROID STIMULATING HORMONE 0.034 uIU/ML (0.358-3.740); TOTAL PROTEIN 7.5 GM/DL (6.4-8.2); TRIGLYCERIDES LEVEL 179 MG/DL (<150)
== END ==
LOC: M SFHCADAM 13:50
PROVIDERS: ATTEND Family Medicine
DX: Z00.00 Encounter for general adult medical examination without abnormal findings (principal); E03.9 Hypothyroidism, unspecified

== ENCOUNTER → 2021-03-13 | Outpatient (REF) | payer OTHER | LOC: M SFHCADAM 13:41 | PROVIDERS: ATTEND Family Medicine | DX: E03.9 Hypothyroidism, unspecified (principal) ==

== ENCOUNTER → 2021-05-06 | Outpatient (CLI) | payer OTHER ==
[~2021-05-06] MED LIST changes: +GASTROGRAFIN SOLUTION 30ML (Q9963) ONE; +ISOVUE-370 76% 100ML VIAL ONE
--- NOTE | 2021-05-06 10:26 | REP ---
INDICATION: GENERALIZED ABDOMINAL PAIN. COMPARISON: 05/04/2016 TECHNIQUE: Axial contrast-enhanced images from the lung bases to the pubic symphysis using oral and 100 cc Isovue 370 intravenous contrast material. Delayed images of the abdomen along with coronal and sagittal reformations obtained. This CT examination was performed using the following dose reduction techniques: Automated exposure control, adjustment of mA and/or kv according to the patient's size, and the use of iterative reconstruction technique. FINDINGS: Lung bases are clear. Liver, spleen, pancreas, gallbladder, bilateral adrenal glands and kidneys are normal. The enteric system including stomach, small, and large bowel appears normal. No evidence for obstruction or acute inflammatory process. Normal terminal ileum and appendix are identified in the right lower quadrant. Mildly prominent pericecal lymph nodes raise the possibility of mesenteric adenitis. Pelvis demonstrates normal bladder and age-appropriate uterus/adnexa. Small fat containing periumbilical hernia noted. No ascites. No free air. No intraperitoneal or retroperitoneal adenopathy. Abdominal aorta and vasculature appear normal. Musculoskeletal structures are intact and without acute osseous abnormality. IMPRESSION: 1. Mesenteric adenitis cannot be excluded. 2. Otherwise essentially normal CT of the abdomen and pelvis. <Electronically signed by Paqsuale Baez > 05/06/21 1023
== END ==
LOC: M PLAIMG 08:46
PROVIDERS: ATTEND Physician Assistant
DX: R10.84 Generalized abdominal pain (principal)

== ENCOUNTER 2021-07-09 12:58 | Emergency (ER) | payer OTHER ==
[~2021-07-09] VITALS: Ht 165.1 cm; Wt 81.8 kg
[2021-07-09 12:58] VITALS: BP 120/75
[~2021-07-09 12:58] MED LIST changes: -GASTROGRAFIN SOLUTION 30ML (Q9963) ONE; -ISOVUE-370 76% 100ML VIAL ONE
[2021-07-09] MEDS ORDERED: LEVO75TA4 (13:26)
[2021-07-09] MEDS ORDERED: MIRA3350 PO (16:26)
== END 2021-07-09 16:32 | disposition home or self-care (01) ==
LOC: M ED 12:58
DX: K58.8 Other irritable bowel syndrome (principal); E03.9 Hypothyroidism, unspecified; F32.A Depression, unspecified; F41.9 Anxiety disorder, unspecified; Z79.890 Hormone replacement therapy; Z79.899 Other long term (current) drug therapy

== ENCOUNTER → 2022-01-26 | Outpatient (REF) | payer OTHER ==
[~2022-01-26] MED LIST changes: +LEVO75TA4; +MIRA3350 PO
[2022-01-26 18:14] LABS: APPEARANCE, URINE MANUAL CLEAR (CLEAR); COLOR, URINE MANUAL ORANGE (YELLOW); GLUCOSE, URINE (UA) MANUAL OBSCURED mg/dL (NEGATIVE); KETONE, URINE MANUAL OBSCURED mg/dL (NEGATIVE); PH,URINE MAN OBSCURED UNITS (5.0 - 7.0); PROTEIN, URINE MANUAL OBSCURED mg/dL (NEGATIVE); UROBILINOGEN, URINE MANUAL OBSCURED mg/dl (NORMAL)
[2022-01-26 18:15] LABS: BILIRUBIN, URINE MANUAL OBSCURED (NEGATIVE); BLOOD URINE MANUAL OBSCURED (NEGATIVE); LEUKOCYTE ESTERASE, URINE MAN OBSCURED (NEGATIVE); NITRITE, URINE MANUAL OBSCURED (NEGATIVE)
[2022-01-26 18:37] LABS: BACTERIA, URINE SMALL AMOUNT; HYALINE CAST, URINE NONE SEEN /lpf (0-1); RBC, URINE NONE SEEN /hpf (0-3); SQUAMOUS EPITHELIAL CELL URINE NONE SEEN /hpf (SMALL AMT); WBC, URINE 0-1 /hpf (0-3)
== END ==
LOC: M LAB REF 17:44
PROVIDERS: ATTEND Physician Assistant Medical
DX: N39.0 Urinary tract infection, site not specified (principal)

== ENCOUNTER 2022-03-29 17:09 | Emergency (ER) | payer OTHER ==
[~2022-03-29] VITALS: Ht 165.1 cm; Wt 82.4 kg
[2022-03-29 18:33] LABS: BASO # 0.1 10^3/uL (0.0-0.2); BASO % 0.6 % (0.0-1.0); EOS # 0.3 10^3/uL (0.0-0.5); HEMATOCRIT 39.7 % (36.0-47.0); HEMOGLOBIN 12.9 g/dl (12.0-15.5); LYMPH # 1.5 10^3/uL (1.5-5.0); LYMPH % 18.3 % (24.0-44.0); MEAN CORPUSCULAR HEMOGLOBIN 29.2 pg (27.0-33.0); MEAN CORPUSCULAR HGB CONC 32.5 g/dl (32.0-36.5); MEAN CORPUSCULAR VOLUME 89.8 fl (80.0-96.0); MONO # 0.5 10^3/uL (0.0-0.8); MONO % 6.5 % (2.0-8.0); NEUTROPHILS # 5.8 10^3/uL (1.5-8.5); NEUTROPHILS % 69.9 % (36.0-66.0); PLATELET COUNT, AUTOMATED 309 10^3/uL (150-450); RED BLOOD COUNT 4.42 10^6/uL (4.00-5.40); WHITE BLOOD COUNT 8.3 10^3/uL (4.0-10.0)
[2022-03-29 19:03] LABS: HCG, SERUM QUALITATIVE NEGATIVE (NEGATIVE)
[2022-03-29 19:08] LABS: BLOOD UREA NITROGEN 14 MG/DL (9-23); CALCIUM LEVEL 9.4 MG/DL (8.5-10.1); CARBON DIOXIDE LEVEL 27 MMOL/L (20-31); CHLORIDE LEVEL 101 MMOL/L (98-107); CREATININE FOR GFR 0.82 MG/DL (0.55-1.30); GLOMERULAR FILTRATION RATE > 60.0 (>60); GLUCOSE, FASTING 77 MG/DL (60-100); POTASSIUM SERUM 4.4 MMOL/L (3.5-5.1); SODIUM LEVEL 138 MMOL/L (136-145)
[2022-03-29 20:56] LABS: GC DNA AMPLIFICATION NEGATIVE (NEGATIVE)
[2022-03-29 22:06] VITALS: BP 113/68
== END 2022-03-29 22:14 | disposition home or self-care (01) ==
LOC: M ED 17:09
DX: R10.2 Pelvic and perineal pain (principal); N89.8 Other specified noninflammatory disorders of vagina; E03.9 Hypothyroidism, unspecified; F32.A Depression, unspecified; Z98.51 Tubal ligation status; Z79.890 Hormone replacement therapy; Z79.899 Other long term (current) drug therapy

== ENCOUNTER → 2022-04-16 | Outpatient (REF) | payer OTHER ==
[2022-04-16 16:46] LABS: THYROID STIMULATING HORMONE 3.567 uIU/ML (0.55-4.78)
[2022-04-16 16:47] LABS: FREE T4 1.27 NG/DL (0.89-1.76)
== END ==
LOC: M SFHCADAM 13:29
PROVIDERS: ATTEND Family Medicine
DX: E03.9 Hypothyroidism, unspecified (principal)

== ENCOUNTER → 2022-11-26 | Outpatient (REF) | payer BC ==
[2022-11-26 13:33] LABS: BASO # 0.1 10^3/uL (0.0-0.2); BASO % 0.9 % (0.0-1.0); EOS # 0.4 10^3/uL (0.0-0.5); EOS % 5.9 % (0.0-3.0); HEMATOCRIT 41.8 % (36.0-47.0); HEMOGLOBIN 13.4 g/dl (12.0-15.5); LYMPH % 29.5 % (24.0-44.0); MEAN CORPUSCULAR HEMOGLOBIN 29.2 pg (27.0-33.0); MEAN CORPUSCULAR HGB CONC 32.1 g/dl (32.0-36.5); MEAN CORPUSCULAR VOLUME 91.1 fl (80.0-96.0); MONO # 0.4 10^3/uL (0.0-0.8); MONO % 5.6 % (2.0-8.0); NEUTROPHILS # 3.8 10^3/uL (1.5-8.5); NEUTROPHILS % 57.8 % (36.0-66.0); PLATELET COUNT, AUTOMATED 323 10^3/uL (150-450); RED BLOOD COUNT 4.59 10^6/uL (4.00-5.40); WHITE BLOOD COUNT 6.6 10^3/uL (4.0-10.0)
[2022-11-26 14:03] LABS: THYROID STIMULATING HORMONE 3.572 uIU/ML (0.55-4.78)
[2022-11-26 14:05] LABS: ALBUMIN 4.2 G/DL (3.2-5.2); ALKALINE PHOSPHATASE 83 U/L (46-116); ALT/SGPT 17 U/L (7.0-40); AST/SGOT 9 U/L (<34); BILIRUBIN,TOTAL 0.5 MG/DL (0.3-1.2); BLOOD UREA NITROGEN 19 MG/DL (9-23); CALCIUM LEVEL 9.7 MG/DL (8.5-10.1); CARBON DIOXIDE LEVEL 27 MMOL/L (20-31); CHLORIDE LEVEL 102 MMOL/L (98-107); CHOLESTEROL LEVEL 183 MG/DL (<200); CHOLESTEROL RISK RATIO 3.42 (<5); CREATININE FOR GFR 0.86 MG/DL (0.55-1.30); GLOMERULAR FILTRATION RATE > 60.0 (>60); GLUCOSE, FASTING 88 MG/DL (60-100); HDL CHOLESTEROL 53.4 MG/DL (>40); LDL CHOLESTEROL 113.4 MG/DL (<100); NON-HDL-C 129.6 MG/DL; POTASSIUM SERUM 4.8 MMOL/L (3.5-5.1); SODIUM LEVEL 139 MMOL/L (136-145); TOTAL PROTEIN 7.2 G/DL (5.7-8.2); TRIGLYCERIDES LEVEL 81 MG/DL (<150)
[2022-11-26 14:06] LABS: FREE T4 1.01 NG/DL (0.89-1.76)
== END ==
LOC: M SFHCADAM 08:44
PROVIDERS: ATTEND Family Medicine
DX: Z00.00 Encounter for general adult medical examination without abnormal findings (principal)

== ENCOUNTER → 2023-07-15 | Outpatient (REF) | payer BC | LOC: M SFHCADAM 11:26 | PROVIDERS: ATTEND Family Medicine | DX: E03.9 Hypothyroidism, unspecified (principal) ==

== ENCOUNTER → 2023-09-02 | Outpatient (REF) | payer BC | LOC: M SFHCWAGY 13:28 | PROVIDERS: ATTEND Family Medicine | DX: Z12.4 Encounter for screening for malignant neoplasm of cervix (principal) ==

== ENCOUNTER → 2024-01-19 | Outpatient (REF) | payer BC ==
[~2024-01-19] MED LIST changes: +FLUO-365; -FLUO20CA22
[2024-01-19 13:48] LABS: APPEARANCE, URINE CLEAR (CLEAR); BACTERIA, URINE AUTO NEGATIVE (NEGATIVE); BILIRUBIN, URINE AUTO NEGATIVE (NEGATIVE); BLOOD, URINE BLOOD NEGATIVE (NEGATIVE); COLOR, URINE STRAW (YELLOW); GLUCOSE, URINE (UA) AUTO NEGATIVE (NEGATIVE); KETONE, URINE AUTO NEGATIVE (NEGATIVE); LEUKOCYTE ESTERASE, URINE AUTO NEGATIVE (NEGATIVE); NITRITE, URINE AUTO NEGATIVE (NEGATIVE); PROTEIN, URINE AUTO NEGATIVE (NEGATIVE); RBC, URINE AUTO 0 /HPF (0-3); SPECIFIC GRAVITY URINE AUTO 1.008 (1.002-1.035); SQUAMOUS EPITHELIAL CELL UR AU 1 /HPF (0-6); UROBILINOGEN, URINE AUTO 0.2 mg/dL (0.0-2.0); WBC, URINE AUTO 0 /HPF (0-3)
== END ==
LOC: M LAB REF 12:26
PROVIDERS: ATTEND Physician Assistant Medical
DX: N39.0 Urinary tract infection, site not specified (principal)

== ENCOUNTER → 2024-02-09 | Outpatient (REF) | payer OTHER, BC ==
[2024-02-09 21:01] LABS: APPEARANCE, URINE CLEAR (CLEAR); BACTERIA, URINE AUTO NEGATIVE (NEGATIVE); BILIRUBIN, URINE AUTO NEGATIVE (NEGATIVE); BLOOD, URINE BLOOD NEGATIVE (NEGATIVE); COLOR, URINE YELLOW (YELLOW); GLUCOSE, URINE (UA) AUTO NEGATIVE (NEGATIVE); KETONE, URINE AUTO NEGATIVE (NEGATIVE); LEUKOCYTE ESTERASE, URINE AUTO NEGATIVE (NEGATIVE); NITRITE, URINE AUTO NEGATIVE (NEGATIVE); PROTEIN, URINE AUTO NEGATIVE (NEGATIVE); RBC, URINE AUTO 1 /HPF (0-3); SPECIFIC GRAVITY URINE AUTO 1.016 (1.002-1.035); SQUAMOUS EPITHELIAL CELL UR AU 1 /HPF (0-6); UROBILINOGEN, URINE AUTO 0.2 mg/dL (0.0-2.0); WBC, URINE AUTO 0 /HPF (0-3)
[2024-02-09 22:29] LABS: Trichomonas vaginalis (AMP) NOT DETECTED (NEGATIVE)
[2024-02-09 22:53] LABS: GC DNA AMPLIFICATION NEGATIVE (NEGATIVE)
== END ==
LOC: M LAB REF 20:51
PROVIDERS: ATTEND Physician Assistant
DX: N39.0 Urinary tract infection, site not specified (principal)

== ENCOUNTER → 2025-02-01 | Outpatient (REF) | payer OTHER, BC ==
[2025-02-01 12:07] LABS: APPEARANCE, URINE HAZY (CLEAR); BACTERIA, URINE AUTO 1+ (NEGATIVE); BILIRUBIN, URINE AUTO NEGATIVE (NEGATIVE); BLOOD, URINE BLOOD NEGATIVE (NEGATIVE); GLUCOSE, URINE (UA) AUTO NEGATIVE (NEGATIVE); KETONE, URINE AUTO NEGATIVE (NEGATIVE); LEUKOCYTE ESTERASE, URINE AUTO NEGATIVE (NEGATIVE); MUCUS, URINE SMALL (NEGATIVE); NITRITE, URINE AUTO NEGATIVE (NEGATIVE); PROTEIN, URINE AUTO NEGATIVE (NEGATIVE); RBC, URINE AUTO 1 /HPF (0-3); SPECIFIC GRAVITY URINE AUTO 1.027 (1.002-1.035); SQUAMOUS EPITHELIAL CELL UR AU 6 /HPF (0-6); UROBILINOGEN, URINE AUTO 0.2 mg/dL (0.0-2.0); WBC, URINE AUTO 2 /HPF (0-3)
== END ==
LOC: M LAB REF 11:33
PROVIDERS: ATTEND Physician Assistant
DX: B34.9 Viral infection, unspecified (principal); N39.0 Urinary tract infection, site not specified

== ENCOUNTER → 2025-03-10 | Outpatient (REF) | payer BC, OTHER ==
[2025-03-10 17:46] LABS: HIV 1&2 SCREEN NEGATIVE (NEGATIVE)
== END ==
LOC: M SFHCADAM 12:56
PROVIDERS: ATTEND Family Medicine
DX: Z11.3 Encounter for screening for infections with a predominantly sexual mode of transmission (principal); N89.8 Other specified noninflammatory disorders of vagina